=== PATIENT | male | born 1970 | race Caucasian/White ===

== ENCOUNTER 2023-07-30 19:35 | Inpatient (IN) | payer OTHER, SELFPAY ==
[2023-07-30 19:54] VITALS: BMI 30.6
[2023-07-30 20:46] LABS: Hemoglobin 15.3 g/dL (13.0-18.0); Mean Corp Hgb Conc. 36.4 g/dL (33.0-37.0); Mean Corpuscular Hgb 29.8 pg (27.0-31.0); Mean Corpuscular Volume 81.7 fL (80.0-94.0); Mean Platelet Volume 10.4 fL (7.4-10.4); Platelet Count 155 10^3/uL (130-400); Red Blood Cell Count 5.14 10^6/uL (4.70-6.10); White Blood Cell Count 8.9 10^3/uL (4.8-10.8)
[2023-07-30 20:56] LABS: INR 1.01; PT 13.1 Sec (11.4-14.6)
[2023-07-30 20:57] LABS: APTT 30.8 Sec (23.4-35.0)
--- NOTE | 2023-07-30 20:59 | PTCARENOTE ---
received patient from [facility]. AAOx3. independent. denies any pain. oriented to room. at the bedside. updated Tsilin CV PA on arrival and at the bedside. labs and EKG completed.
[2023-07-30 21:11] LABS: ALT (SGPT) 17 U/L (0-50); AST (SGOT) 24 U/L (17-59); Alkaline Phosphatase 72 U/L (38-126); Blood Urea Nitrogen 18 mg/dl (9-20); Calcium 9.2 mg/dl (8.4-10.2); Carbon Dioxide 23 mmol/L (22-30); Chloride 104 mmol/L (98-107); Estimated Creatinine Clearance 100 ml/min; Glucose 105 mg/dl (70-99); Magnesium 2.1 mg/dl (1.6-2.3); Potassium 4.1 mmol/L (3.5-5.1); Sodium 135 mmol/L (135-145); Total Bilirubin 0.9 mg/dl (0.2-1.3); Total Protein 6.8 g/dl (6.3-8.2); eGFR > 60.00
--- NOTE | 2023-07-30 21:59 | HPS.HSE ---
Family Physician
-
Family Physician: PT does not have PCP
Outpatient Supervisor Dental Laboratory: none
Chief Complaint
-
Mitral valve vegetation/mass
History of Present Illness
Mr Aguilera is a very pleasant 52 yo male with no prior cardiac history, current smoker, hx alcohol (quit 2 yrs ago), hx GERD, hernia repair and knee surgery in the past. He has not had regular medical follow-up in awhile and doesn't take any meds at
home. 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
On 07/25 he noted pain in L wrist, which felt like 'bee sting' and looked like 'blood blister.' Pt applied Neosporin and noted that L hand got progressively more swollen and tender. He doesn't recall any injury to L wrist. On Wednesday 07/26 he
noted another red blister, now on R wrist, but recalls getting injured there by the dog collar. It started draining and got more red, which brought him to an Urgent Care on Thursday 07/27. He felt his heart pounding, but otherwise, had no symptoms of
fever, CP, SOB, nausea/vomiting, dizziness. He was found to have elevated BP 180s, abnormal ECG and was sent to ED.
At [facility], he was started on Augmentin for suspected hand cellulitis and states that L wrist looks and feels much better. High sensitivity trops were elevated 95, 109. D-dimer was mildly elevated 0.[address] revealed no PE, no focal
consolidation. He remained afebrile with normal wbc. He denies hx of diabetes, HgA1C was 5.6
Pt underwent Echo revealing nl LV and RV fxn, EF 60-65% and mod-severe MR with 1.4*1.5 cm mass, associated with the posterior mitral valve leaflet, prolapsing into the Left atrium, which likely represents a vegetation, tumor could not be totally
excluded. Normal aortic valve, normal tricuspid valve with trivial to mild TR and no pericardial effusion.
He was switched from Augmentin to Cefepime and Vancomycin in light of mitral valve vegetation. Cath 07/29 with non-obstructive CAD.
CHRIST 07/29 revealed large size (approx 2*1 cm) rectangular shape with multiple small size attached masses likely encasing P2 scallop of the posterior leaflet in the atrial side. Anterior mitral popliteal leaflet is moderately thickened. Mitral
regurgitation appears in moderate range. There is systolic wave blunting in the 2 pulmonary veins. Normal RV systolic function. Normal LV fxn, EF 55-60%. No thrombus in REESE, no pericardial effusion.
Pt is sent to on 07/29 for further work-up. He denies any symptoms, appears comfortable and not on any drips. He was started on ASA, Lipitor, Lopressor 50 bid, Norvasc, Cefepime 1 gm q12, Vanco 1500 mg q12, and Nicotine lozenge.
Medical History
Past Medical History
Past Medical History: Reports GERD (no relief with Prilosec in the past)
Additional Past Medical History:
in 1997 had syncope going to the bathroom after drinking beer, suspected d/t dehydration
Past Surgical History: Reports Other (L inguinal hernia repair and R knee surgery for Lynne-Schlatter dz)
Social History
Tobacco: Smoker (1-1.5 ppd since 20 yo.)
Alcohol: Former (drank 3.5 cases of beer (24 pack each), quit 2 years ago)
Drug: None
Personal: ('s name is Marta. Has 25 yo daughter and 22 yo son)
Living: With Family
Employment: Employed (works in facility maintenance)
Family History
Family History: Unable to Obtain (Father . Has no communication in 13 years with mother and older sister )
Allergies / Home Medications
Allergies reflects when Allergies were last updated in [email or web address].
Home Medications with original date entered in [email or web address]
Allergy/Medication List:
NKDA
Home meds : Motrin prn
Review of Systems
-
History Source: Patient
A 12 point ROS was completed and negative except as noted: Yes
Constitutional: Reports Weight Gain (since April ) and Other (Denies any fever, chills, night sweats)
EENT: Reports No Symptoms
Respiratory: Reports No Symptoms
Cardiac: Reports No Symptoms
Abdomen/GI: Reports No Symptoms
: Reports No Symptoms
Musculoskeletal: Reports Joint Swelling (L hand as in HPI - improved)
Skin: Reports Other (L and R wrist lesions)
Neurological: Reports No Symptoms
Endocrine: Reports No Symptoms
Hematologic/Lymphatic: Reports No Symptoms
Psych: Reports No Symptoms
Physical Exam
Vital Signs
Vital Signs
Temp Resp Pulse Ox
98.0 F 20 96
07/30/23 19:48 07/30/23 19:48 07/30/23 19:48
Physical Exam
General: Well Developed, Well Nourished, No Apparent Distress, Comfortable and Conversant
HEENT: NormoCephalic, Anicteric, Moist mucous membranes and PERRLA
Respiratory: Decreased Breath Sounds (throughout. No rales, no wheeze b/l)
Cardiac: S1/S2, Regular Rhythm, Murmur (2/6 systolic murmur at L midclavicular area) and Other (No carotid bruits b/l. No JVD. No edema b/l. 2+ DP and PT b/l)
GI: Soft, Non Tender, Non Distended and Normal Bowel Sounds
Musculoskeletal: No Edema
Skin: Warm, Dry and Lesions (L and R wrists)
Neuro: Awake, AO x 3, No Motor Deficits and Nonfocal/grossly intact
Psych: Calm and Intact Judgment/Insight
Laboratory Results
-
07/30/23 20:39
07/30/23 20:39
Laboratory Results
PT 13.1 Sec (11.4-14.6) 07/30/23 20:39
INR 1.01 07/30/23 20:39
APTT 30.8 Sec (23.4-35.0) 07/30/23 20:39
Total Bilirubin 0.9 mg/dl (0.2-1.3) 07/30/23 20:39
AST 24 U/L (17-59) 07/30/23 20:39
ALT 17 U/L (0-50) 07/30/23 20:39
Alkaline Phosphatase 72 U/L (38-126) 07/30/23 20:39
Data Reviewed
-
CT Scan: Report Reviewed by me
Medical Tests (Nuc Med, Echo, EKG etc): Image Personally Visualized and interpreted
Lab Data: Labs Reviewed by me
Old Records: Reviewed
Impression/Plan
-
IMPRESSION:
-MV mass/vegetation with moderate MR by CHRIST 07/30/23- on Cefepime and Vanco.
-L hand cellulitis/b/l wrist lesions - improving, s/p Tdap at [facility]
-Chest CT at [facility]: no PE
-HTN/HLD
-elevated HS-trops without ischemia
-Cath 07/30/23: non-obstructive CAD
LM: normal
LAD: prox and mid 10% stenosis
D1: normal
D2: 10% prox stenosis
Circ: prox <10% and mid 10% stenosis
OM1 and OM3 with luminal irreg
OM2 and OM4 normal
RCA: prox 10% and mid with luminal irreg
PDA and RPLs normal
-EF 55-60%
-Current smoker 1-1.5 ppd for 30 yrs
-Hx alcohol, quit 2 years ago
-Hx GERD
-Hx L inguinal hernia repair
-Hx R knee surgery
PLAN:
-continue Abx
-follow blood cx (has been afebrile with nl wbc)
-will review findings (CHRIST, Cath, CT...) with Dr. Raines and initiate preop work-up
-Cardiology follow-up
[2023-07-30] MEDS: LOVENOX 40 MG SC (22:05)
[2023-07-30] MEDS: MAXIPIME 1000 MG IV (22:05)
[2023-07-30] MEDS: STERILE WATER FOR INJECTION 10 ML IV (22:05)
[2023-07-30 22:31] VITALS: BP 127/84
[2023-07-30] MEDS: VANCOCIN 300 ML IV (22:32)
[2023-07-30] MEDS: VANCOCIN 300 MG IV (22:32)
--- NOTE | 2023-07-31 03:28 | DOWNTIME ---
There was a [employer] Downtime on 07/31/2023 from 0100 to 07/31/2023 at 0322. Downtime documentation of patient's care, including medication administrations, has been reconciled in the electronic record per guidelines. Refer to the
patient's paper chart under the miscellaneous tab to see printed paper medication records and downtime forms.
[2023-07-31 05:22] VITALS: BP 132/86
[2023-07-31 05:47] LABS: Hematocrit 42.4 % (39.0-52.0); Mean Corp Hgb Conc. 35.4 g/dL (33.0-37.0); Mean Corpuscular Hgb 29.5 pg (27.0-31.0); Mean Corpuscular Volume 83.5 fL (80.0-94.0); Mean Platelet Volume 10.3 fL (7.4-10.4); Platelet Count 147 10^3/uL (130-400); Red Blood Cell Count 5.08 10^6/uL (4.70-6.10); White Blood Cell Count 7.7 10^3/uL (4.8-10.8)
[2023-07-31 06:02] LABS: Blood Urea Nitrogen 17 mg/dl (9-20); Calcium 9.1 mg/dl (8.4-10.2); Carbon Dioxide 24 mmol/L (22-30); Chloride 110 mmol/L (98-107); Estimated Creatinine Clearance 100 ml/min; Glucose 105 mg/dl (70-99); Potassium 4.3 mmol/L (3.5-5.1); Sodium 136 mmol/L (135-145); eGFR > 60.00
[2023-07-31 08:03] VITALS: BP 148/86
[2023-07-31] MEDS: ASPIR LOW (ENTERIC COATED) 81 MG PO (08:06)
[2023-07-31] MEDS: LOPRESSOR 50 MG PO ×2 (08:06→20:06)
[2023-07-31] MEDS: PROTONIX 40 MG PO (08:06)
[2023-07-31] MEDS: NORVASC 5 MG PO (08:06)
--- NOTE | 2023-07-31 08:49 | CON.CAR ---
Addendum entered and electronically signed by Jose Vaughn MD 07/31/23 09:43:
52 yo male with tobacco abuse transferred from [facility] for evaluation of mitral regurgitation. I reviewed his TTE and CHRIST images. Appears to be at least moderate/severe MR with flail at P1/P2. Patient is being evaluated for surgical repair.
Tele: SR, frequent PVC's.
Cath showed non-obstructive CAD. Cont ASA, statin.
Also new diagnosis HTN. Continue amlodipine and metoprolol.
Original Note:
Consultation
Consultation Request
Date/Time Consultation Requested: 07/30/23 1521
Date/Time Consultation Performed: 07/31/23 0800
Requesting Provider: Irene Whitehead PA-C
Performing Provider: Kierra STEPHENS for Dr. Vaughn
Reason for Consultation: mitral valve disease
Medical History
-
Chief Complaint: mitral valve disease
History of Present Illness:
52 y/o male with GERD, current tobacco use, and previous 'borderline' HTN who has not seen medical provider in over 10 years and is not on any medicines as an OP. On night, he felt something like a sting to his left hand. It developed into
a blister, which he popped. The area became more reddened and his hand became swollen. Then, his dog's collar caught his skin on his wrist and he had a wound there. On Saturday, he went to urgent care, where his BP was high. The provider auscultated
his heart and recommended an EKG, which he was told was abnormal. He was referred to the ED ([facility]). He was treated for cellulitis with abx. Trops were abnormal (HS 95, 109). Echo showed EF 60-65% and mod-severe MR with 1.4*1.5 cm mass, associated
with the posterior mitral valve leaflet, prolapsing into the Left atrium. CHRIST 07/29 revealed large size (approx 2*1 cm) rectangular shape with multiple small size attached masses likely encasing P2 scallop of the posterior leaflet in the atrial side.
Anterior mitral popliteal leaflet is moderately thickened. Mitral regurgitation appears in moderate range. There is systolic wave blunting in the [address] Vaughn reviewed imaging here and appears as flail leaflet and endocarditis not
suspected. Cath did not reveal obstructive CAD. He is referred here for surgical management. He denies any CP or SOB. He does get palpitations. PVC's noted on monitor. He looks well overall and is in no distress at the time of my assessment. His
is present in the room with him.
Past Medical History
Past Medical History: GERD and HTN
Social History
Tobacco: Smoker (1 PPD)
Alcohol: Former (quit 2 years ago)
Employment: Employed
Family History
Family History: Other (dad had heart valve disease - details unclear)
Allergies / Home Medications
Allergy/AdvReac Type Severity Reaction Status Date / Time
No Known Allergies Allergy Unverified 07/30/23 21:05
Review of Systems
-
History Source: Patient and Other (and chart)
All other systems: Negative unless noted
Cardiac: Palpitations
Skin: Other (wounds to hands)
Physical Exam
Vital Signs
Temp Pulse Resp BP Pulse Ox
99.7 F 103 16 132/86 96
07/31/23 08:03 07/31/23 08:03 07/31/23 08:03 07/31/23 05:22 07/31/23 08:03
Lab Results
07/31/23 05:24
07/31/23 05:24
Physical Exam
General: Well Developed, Well Nourished and No Apparent Distress
HEENT: Normocephalic and Anicteric
Respiratory: Clear and Non Labored Respirations
Cardiac: Murmur (III/ systolic murmur)
Musculoskeletal: No Edema
Skin: Warm, Dry and Other (left hand with small wound as noted)
Neuro: AO x 3
Psych: Calm
Impression / Plan
-
Mitral valve disease:
-discussed with Dr. Vaughn, who reviewed images- appears to have flail leaflet
-management per CT surgery
Cellulitis:
-s/p antibiotics
-ID consulted
HTN:
-continue metoprolol and amlodipine and monitor
PVC's:
-continue BB, follow telemetry
-EF normal
Current smoker:
-recommended cessation
Data Reviewed
-
EKG: Tracing Personally Visualized and interpreted (NSR 76 BPM)
Ultrasound: Other (CHRIST 07/29 revealed large size (approx 2*1 cm) rectangular shape with multiple small size attached masses likely encasing P2 scallop of the posterior leaflet in the atrial side. Anterior mitral popliteal leaflet is moderately
thickened. Mitral regurgitation appears in moderate range. There is systolic)
Medical Tests (Nuc Med, Echo etc): Report Reviewed by me (Cath report from 07/30/23: non-obstructive CAD- LM: normal- LAD: prox and mid 10% stenosis D1: normal D2: 10% prox stenosis Circ: prox <10% and mid 10% stenosis OM1 and OM3 with luminal irreg
OM2 and OM4 normal RCA: prox 10% and mid with luminal irreg PDA and RPLs normal) and Other (Echo [facility]: EF 60-65% and mod-severe MR with 1.4*1.5 cm mass, associated with the posterior mitral valve leaflet, prolapsing into the Left atrium)
Labs: Labs Reviewed by me
[2023-07-31 09:00] LABS: Glycohemoglobin (HgbA1c) 5.7 % (4.0-5.6)
[2023-07-31 11:19] VITALS: BP 125/88
[2023-07-31 13:07] LABS: Erythrocyte Sed Rate 19 mm/hour (0-20)
--- NOTE | 2023-07-31 14:16 | CM ---
spoke to pt and in room, he is prev indep, lives with his in a 2 story home with 12 steps to enter. he denies any dc planning needs or dme's.
plan is for MVR this admission. date not sched yet, cm to follow.
--- NOTE | 2023-07-31 15:06 | W.PN.UPDATE ---
Update Note
Progress Note Update
I met with Mr. Aguilera and his spouse today at the bedside. Likely a flailed segment of P1/2. Will monitor him for 24 hours and if PVCs remain stable and no runs of VT, then possibly will discharge with surgery on 08/11 with me. I reviewed his imaging
both TTE and CHRIST. He has an obvious systolic murmur consistent with MR. The MR is better represented on the CHRIST. He complains of more palpitations and feeling 'different' over the last month. Otherwise, no heart failure but he also doesn't follow
with a physician. Will need dental clearance but will tentatively plan for heart port mitral repair with me in within a week if he is able to be discharged home.
Thank you for involving me in the care of this patient. Please feel free to contact me with any questions or concerns.
Davide Lopez MD, MS
Cardiothoracic Surgeon
[facility]
This dictation was created using the [employer] dictation system. Please excuse any grammatical, typographical, or 'sound alike' errors.
--- NOTE | 2023-07-31 15:38 | CON.ID ---
Consultation
-
Date/Time Consultation Requested: 07/30/2023 1521
Date/Time Consultation Performed: 07/31/2023 1130
Requesting Provider: ANGELO Valles
Performing Provider: Dr. Cade
Reason for Consultation: Possible endocarditis
Chief Complaint / Past History
History of Present Illness
Dylan Aguilera is a 52-year-old man being evaluated in regards to possible mitral valve endocarditis. History is obtained from chart review, along with patient interview, and history obtained from the patient's who is at the bedside.
The patient reports that he was in his usual state of health until late last week when he developed some left hand discomfort after he may have been stung by an insect. The next day, he developed what appeared to be a bruised area on his left hand
on the dorsal region. Over the next day the hand became mildly swollen and he ultimately was seen at an urgent care center for further evaluation. There, his hand was attended to and he was prescribed Augmentin. During the evaluation, the
provider auscultated a heart murmur and they advised further evaluation at an ER. The patient went home and then went to [facility] emergency room where an echo was performed and found an abnormality on the mitral valve. He has been
transferred to [facility] for further care and possible surgery.
The patient reports that at the urgent care he had received a prescription for Augmentin, of which he took 2 doses (Saturday p.m. and Saturday a.m.) While he was at [facility] he did have blood cultures obtained (although after 2 doses of
Augmentin). He denies any history of recent fevers or chills. He denies any history of malaise.
Past History
Past Medical History: None
Additional Past Surgical History:
Hernia repair
Right knee surgery
Allergy History:
No Known Allergies Allergy (Unverified 07/30/23 21:05)
Medications Reviewed: Yes
Current Antibiotics:
Recent Augmentin.
Vancomycin and cefepime at [facility] and here.
Social History
Tobacco: Smoker (1 and half packs per day x 30 years)
Alcohol: None
Drug: None
Personal:
Living: With Family
Employment: Employed
Family History
Family History: Not Pertinent
Review of Systems
Vital Signs
Temp Pulse Resp BP Pulse Ox
98 F 70 16 148/86 95
07/31/23 11:19 07/31/23 11:19 07/31/23 11:19 07/31/23 08:03 07/31/23 11:19
Physical Exam
Physical Exam
Constitutional: No Acute Distress, Well Developed, Comfortable and Non-toxic
Head: Normocephalic
Eyes: Pupils Equal, Pupils Round and No Conjunctival Hemorrhage
Oral: No Thrush and No Ulcers
Cardiovascular: S1/S2 and Murmur; Negative S3/S4
Pulmonary: Clear and Non Labored
Gastrointestinal: Soft, Non Tender, Non Distended and Normal Bowel Sounds
Extremities: Negative Cyanosis, Erythema, Splinter Hemorrhage, Venous Insufficiency or Janeway Lesions
Skin: Warm and Dry; Negative Rash or Jaundice
Neurological: Awake and Alert
Psychological: Calm
Lab / Diagnostic Study Results
07/31/23 05:24
07/31/23 05:24
ESR 19 mm/hour (0-20) 07/31/23 12:46
PT 13.1 Sec (11.4-14.6) 07/30/23 20:39
INR 1.01 07/30/23 20:39
C-Reactive Protein 9.50 mg/L (0.0-10.00) 07/31/23 12:46
Microbiology Results
Micro:
07/31/23 06:01 Blood Culture - Pending
Blood/Venous
07/31/23 05:24 Blood Culture - Pending
Blood/Venous
07/31/23 05:24 MRSA Screen - Pending
Nose
Imaging:
07/31/2023 CXR (2 view): No evidence of active cardiopulmonary disease.
07/30/2023 ECHO (CHRIST): Official report not immediately available, but records indicate a large rectangular shape with multiple small sized attached masses likely encasing P2 with scalloping of the posterior leaflet on the atrial side.
Assessment / Plan
Abnormal mitral valve with concern for endocarditis
Recommendations:
Case discussed with CT Surgery AIR POLLUTION ANALYST. Antibiotics discontinued.
ESR and CRP ordered earlier today and are essentially normal, making the likelihood of endocarditis somewhat low. Additionally, review of records from CT Surgery indicate that this is likely a flail valve rather than a vegitation.
Blood cultures have been obtained.
Would monitor off of antimicrobial therapy for the present time. Records review indicate that the patient will likely go for valve surgery next week. Given that the patient is not on antibiotics, I would have no objection from a Infectious
Diseases standpoint to discharge.
If blood cultures were to turn positive, antibiotics can be reinstituted.
Care Review
Plan reviewed with: Physician (CT Surgery)
--- NOTE | 2023-07-31 15:58 | W.PN.UPDATE ---
Update Note
Progress Note Update
Procedure Type:�Isolated MVr
PERIOPERATIVE OUTCOME ESTIMATE %
Operative Mortality 0.285%
Morbidity & Mortality 3.75%
Stroke 0.526%
Renal Failure 0.514%
Reoperation 1.72%
Prolonged Ventilation 1.93%
Deep Sternal Wound Infection 0.047%
Long Hospital Stay (>14 days) 1.05%
Short Hospital Stay (<6 days)* 75.7%
Clinical Summary
Planned Surgery: Isolated MVr, Elective, First cardiovascular surgery
Demographics: 52 year old, White, male, 96.8kg, 178cm, BMI: 30.6 kg/m�
Lab Values: Creatinine: 1 mg/dL, Hematocrit: 42.4%, WBC Count: 7.7 10�/�L, Platelet Count: 802933 cells/�L
Substance Abuse: Current smoker
Cardiac Status: Ejection Fraction = 55%
Coronary Artery Disease: No coronary symptoms
Valve Disease: Severe MR, Mild TR
[2023-07-31] MEDS: LIPITOR 40 MG PO (17:14)
[2023-07-31] MEDS: LOVENOX 40 MG SC (17:14)
[2023-07-31 18:51] VITALS: BP 139/93
--- NOTE | 2023-07-31 18:59 | PTCARENOTE ---
Pt with no c/o today. Ambulating in the hallway ad irene. Pt sent for all ordered pre op testing.
--- NOTE | 2023-07-31 20:20 | PTCARENOTE ---
Assumed care of patient at 1900. Patient found OOB in chair at time of assessment. Patient is AOx4, follows commands appropriately, moves all extremities. Patient ambulates independently. Lung sounds are clear and equal bilaterally, saO2 95% on RA.
Heart sounds have a regular rate and rhythm, audible murmur on auscultation, no edema is noted, and normal palpable pulses present. Patient has soft nontender obese with active BS in all four quadrant. Patient has sores on L and R hand according to
patient 2/2 tick bites. There is some local erythema and scabbing noted. Wounds are PICKER AND PACKER. Patient has L arm PIV available for intermittent infusion. VSS. Patient has no complaints at this time.
[2023-07-31 22:37] VITALS: BP 124/81
[2023-07-31 22:51] VITALS: BP 124/81
[2023-08-01] VITALS (7 sets, daily range): BP systolic 124–140; BP diastolic 76–88
--- NOTE | 2023-08-01 06:15 | W.PN.CT ---
Today's Communication / Plan
-
Plan:
-tele: nsr with frequent PACs, PVCs, occasional couplet or triplet. No runs of VT
-no issues overnight, ambulates
-continue Lopressor 50 bid, ASA, Lipitor, Norvasc
-blood cx pending, remains afebrile, off Abx
-appreciate everyone's input
-plans for MV repair on 08/[address] Lopez
Assessment / Plan
-
Impression:
-Moderate MR, suspected a flailed segment of P1/2
-Normal ESR and CRP, making the likelihood of endocarditis somewhat low- Abx stopped 07/30. Blood cx pending- appreciate ID input
-L hand cellulitis/b/l wrist lesions - improving, s/p Tdap at [facility]
-Chest CT at [facility]: no PE
-HTN/HLD
-Frequent PVCs - continue BB
-elevated HS-trops without ischemia
-Cath 07/30/23: non-obstructive CAD
-EF 55-60%
-Current smoker 1-1.5 ppd for 30 yrs
-Hx alcohol, quit 2 years ago
-Hx GERD
-Hx L inguinal hernia repair
-Hx R knee surgery
-frequent PACs, PVCs, occasional couplet or triplet - feels palpitations, denies any dizziness, CP or SOB
Chest/abdomen/pelvis CTA 07/30:
Mild calcific atherosclerotic changes of the thoracic aortic arch and descending thoracic aorta.
Thoracic and abdominal aorta within the limits of normal in caliber and homogeneous in appearance.
Limited by cardiac motion, small amorphous area of decreased attenuation associated with the posterior mitral valve leaflet possibly corresponding to the small lesion/mass seen on cardiac echo.
Limited on this study, suggestion of single small bilateral low-attenuation renal lesions too small to characterize, possibly cysts.
Sigmoid diverticulosis.
Cannot exclude small fat only containing right inguinal hernia.
Discussed patient care with: Nursing and Care Team
Subjective
-
Date of Service: August 01, 2023
Objective Data
-
PT 13.1 Sec (11.4-14.6) 07/30/23 20:39
INR 1.01 07/30/23 20:39
APTT 30.8 Sec (23.4-35.0) 07/30/23 20:39
Vital Signs
Vital Signs
Temp Pulse Resp BP Pulse Ox
98.0 F 54 18 129/82 96
08/01/23 03:00 08/01/23 04:00 08/01/23 03:00 08/01/23 03:14 08/01/23 03:00
CT Intake/Output/Weight
07/31/23 07/31/23 08/01/23
06:59 18:59 06:59
Intake Total 1180 / 1180
Balance 1180 / 1180
SaO2: 96
Physical Exam
-
General: Well Developed, Well Nourished, No Apparent Distress, Comfortable and Conversant
HEENT: Normocephalic, Anicteric, Moist mucous membranes and PERRLA
Respiratory: Decreased Breath Sounds (throughout. No rales, no wheeze b/l)
Cardiac: S1/S2, Regular Rhythm, Murmur (2/6 systolic murmur at L midclavicular area) and Other (No carotid bruits b/l. No JVD. No edema b/l. 2+ DP and PT b/l)
GI: Soft, Non Tender, Non Distended and Normal Bowel Sounds
Musculoskeletal: No Edema
Skin: Warm, Dry and Lesions (L and R wrists)
Neuro: Awake, AO x 3, No Motor Deficits and Nonfocal/grossly intact
Psych: Calm and Intact Judgment/Insight
Data Reviewed
-
Lab Results: Results Reviewed
Medications: Active Meds Reviewed
Chest X-Ray: Report Reviewed and Image Reviewed
ECG: Report Reviewed and Image Reviewed
[2023-08-01 06:57] LABS: Hematocrit 40.8 % (39.0-52.0); Hemoglobin 14.7 g/dL (13.0-18.0); Mean Corpuscular Hgb 29.6 pg (27.0-31.0); Mean Corpuscular Volume 82.1 fL (80.0-94.0); Mean Platelet Volume 10.5 fL (7.4-10.4); Platelet Count 151 10^3/uL (130-400); Red Blood Cell Count 4.97 10^6/uL (4.70-6.10); Red Cell Dist. Width 12.8 % (11.5-14.5); White Blood Cell Count 6.1 10^3/uL (4.8-10.8)
[2023-08-01 07:10] LABS: Blood Urea Nitrogen 18 mg/dl (9-20); Carbon Dioxide 26 mmol/L (22-30); Chloride 105 mmol/L (98-107); Estimated Creatinine Clearance 100 ml/min; Glucose 107 mg/dl (70-99); Magnesium 2.1 mg/dl (1.6-2.3); Potassium 4.2 mmol/L (3.5-5.1); Sodium 136 mmol/L (135-145); eGFR > 60.00
--- NOTE | 2023-08-01 08:55 | W.PN.CD ---
Today's Communication / Plan
-
continue metoprolol
surgical evaluation
Impression / Plan
-
Mitral regurgitation, severe
-mechanism appears to be flail leaflet, at P1/P2
-no evidence of endocarditis
-agree with surgical evaluation
Cellulitis:
-s/p antibiotics with ID input
HTN:
-continue metoprolol and amlodipine
PVC's: improved with beta maria e
-echo with normal LVEF
-continue metoprolol
Non-obstructive CAD
-ASA, statin
Current smoker:
-recommended cessation
Physical Exam
Vital Signs/Labs
Vital Signs
Temp Pulse Resp BP Pulse Ox
98.1 F 54 20 129/82 97
08/01/23 08:02 08/01/23 04:00 08/01/23 08:02 08/01/23 03:14 08/01/23 08:02
07/31/23 08/01/23 08/02/23
06:59 06:59 06:59
Actual Weight 96.8 kg
08/01/23 06:39
08/01/23 06:41
PT 13.1 Sec (11.4-14.6) 07/30/23 20:39
INR 1.01 07/30/23 20:39
APTT 30.8 Sec (23.4-35.0) 07/30/23 20:39
Magnesium 2.1 mg/dl (1.6-2.3) 08/01/23 06:41
Physical Exam
Constitutional: No acute distress and Comfortable
EENT: Moist mucous membranes
Cardiovascular: Rhythm & rate is regular, Pedal edema is absent, JVD pressure is normal and Systolic murmur present
Respiratory: Respiratory effort normal, Lungs clear to auscul. and Wheeze Absent
GI: Soft, Distention absent and Flat
Neuro/Psych: AO x 3
Data Reviewed
-
Date of Service: August 01, 2023
EKG: Other (Tele: occasional PVC's, one triplet)
Labs: Labs Reviewed by me
[2023-08-01] MEDS: ASPIR LOW (ENTERIC COATED) 81 MG PO (09:10)
[2023-08-01] MEDS: LOPRESSOR 50 MG PO ×2 (09:10→19:48)
[2023-08-01] MEDS: PROTONIX 40 MG PO (09:10)
[2023-08-01] MEDS: SENOKOT-S 1 TABLET PO (09:10)
[2023-08-01] MEDS: NORVASC 5 MG PO (09:10)
--- NOTE | 2023-08-01 11:07 | W.PN.ID1 ---
Date of Service
Date of Service: August 01, 2023
Today's Communication
Observe off antibiotics
Assessment / Plan
Abnormal mitral valve with concern for endocarditis
Recommendations:
ESR and CRP essentially normal, making the likelihood of endocarditis somewhat low. Additionally, review of records from CT Surgery indicate that this is likely a flail valve rather than a vegetation.
Blood cultures have been obtained; no growth thus far.
Would continue to monitor off of antimicrobial therapy for the present time. Records review indicate that the patient will likely go for valve surgery next week.
If blood cultures were to turn positive, antibiotics can be reinstituted.
����������������������������������������������������������
Chief Complaint
-: Other (Abnormal mitral valve)
Subjective / Review of Systems
Review of Systems: No Fever and No Chills
Vital Signs / Physical Exam
Vital Signs
Vital Signs
Temp Pulse Resp BP Pulse Ox
98.1 F 71 20 130/87 96
08/01/23 08:02 08/01/23 10:45 08/01/23 08:02 08/01/23 09:10 08/01/23 08:30
Physical Exam
Constitutional: No Acute Distress, Comfortable and Non-toxic
Cardiovascular: Regular Rate
Pulmonary: Non Labored
Gastrointestinal: Non Distended
Neurological: Awake and Alert
Psychological: Calm
Objective Data
Lab Data
Lab Results
08/01/23 06:39
08/01/23 06:41
ESR 19 mm/hour (0-20) 07/31/23 12:46
PT 13.1 Sec (11.4-14.6) 07/30/23 20:39
INR 1.01 07/30/23 20:39
APTT 30.8 Sec (23.4-35.0) 07/30/23 20:39
Estimated Creat Clear 100 ml/min 08/01/23 06:41
Total Bilirubin 0.9 mg/dl (0.2-1.3) 07/30/23 20:39
AST 24 U/L (17-59) 07/30/23 20:39
ALT 17 U/L (0-50) 07/30/23 20:39
Alkaline Phosphatase 72 U/L (38-126) 07/30/23 20:39
C-Reactive Protein 9.50 mg/L (0.0-10.00) 07/31/23 12:46
Most recent labs reviewed.
Micro Results:
07/31/23 05:24 MRSA Screen - Final
Nose No Methicillin Resistant Staphylococcus aureus isolated.
07/31/23 06:01 Blood Culture - Preliminary
Blood/Venous No Growth in 24 hours- Final report to follow
07/31/23 05:24 Blood Culture - Preliminary
Blood/Venous No Growth in 24 hours- Final report to follow
08/01/23 03:37 Blood Culture - Pending
Blood/Venous
Imaging:
07/31/2023 CXR (2 view): No evidence of active cardiopulmonary disease.
07/30/2023 ECHO ([facility]): Official report not immediately available, but records indicate a large rectangular shape with multiple small sized attached masses likely encasing P2 with scalloping of the posterior leaflet on the atrial side.
[2023-08-01] MEDS: LOVENOX 40 MG SC (17:39)
[2023-08-01] MEDS: LIPITOR 40 MG PO (17:39)
--- NOTE | 2023-08-01 22:58 | PTCARENOTE ---
assumed care of patient at the change of shift. independent in the room. ambulating in the hallway. denies any cp/sob. SR on tele with PVCs 60s. bp stable. patient showered per order. no issues. educated patient to inform RN with any changes. makes
needs known.
--- NOTE | 2023-08-02 05:27 | W.PN.CT ---
Today's Communication / Plan
-
-no issues overnight
-pt is asking to minimize blood draws- will check labs on Saturday
-plan for Mv repair +/- REESE E due to frequent PAC/PVCs with Dr. Lopez on Saturday.
Assessment / Plan
-
Impression:
-Moderate MR, suspected a flailed segment of P1/2
-Normal ESR and CRP, making the likelihood of endocarditis somewhat low- Abx stopped 07/30. Blood cx pending- appreciate ID input
-L hand cellulitis/b/l wrist lesions - improving, s/p Tdap at [facility]
-Chest CT at [facility]: no PE
-HTN/HLD
-Frequent PVCs - continue BB
-elevated HS-trops without ischemia
-Cath 07/30/23: non-obstructive CAD
-EF 55-60%
-Current smoker 1-1.5 ppd for 30 yrs
-Hx alcohol, quit 2 years ago
-Hx GERD
-Hx L inguinal hernia repair
-Hx R knee surgery
-frequent PACs, PVCs, occasional couplet or triplet - feels palpitations, denies any dizziness, CP or SOB
Chest/abdomen/pelvis CTA 07/30:
Mild calcific atherosclerotic changes of the thoracic aortic arch and descending thoracic aorta.
Thoracic and abdominal aorta within the limits of normal in caliber and homogeneous in appearance.
Limited by cardiac motion, small amorphous area of decreased attenuation associated with the posterior mitral valve leaflet possibly corresponding to the small lesion/mass seen on cardiac echo.
Limited on this study, suggestion of single small bilateral low-attenuation renal lesions too small to characterize, possibly cysts.
Sigmoid diverticulosis.
Cannot exclude small fat only containing right inguinal hernia.
Discussed patient care with: Nursing and Care Team
Subjective
-
Date of Service: August 02, 2023
Objective Data
-
Lab Results
08/01/23 06:39
03/28/24 06:41
PT 13.1 Sec (11.4-14.6) 07/30/23 20:39
INR 1.01 07/30/23 20:39
APTT 30.8 Sec (23.4-35.0) 07/30/23 20:39
Vital Signs
Vital Signs
Temp Pulse Resp BP Pulse Ox
98.2 F 67 20 133/80 97
08/01/23 23:29 08/01/23 22:45 08/01/23 23:29 08/01/23 22:11 08/01/23 23:29
CT Intake/Output/Weight
08/01/23 08/01/23 08/02/23
06:59 18:59 06:59
Intake Total 450 / 450
Balance 450 / 450
SaO2: 97
Physical Exam
-
General: AOx3
Cardiovascular: Regular rate & rhythm and Murmur (2/6 systolic @ L mid-clav line)
Respiratory: Clear
Extremities: No Edema
Data Reviewed
-
Lab Results: Results Reviewed
Medications: Active Meds Reviewed
Chest X-Ray: Report Reviewed
ECG: Report Reviewed and Image Reviewed
[2023-08-02 05:44] VITALS: BP 151/93
[2023-08-02 06:57] VITALS: BP 128/88
[2023-08-02] MEDS: ASPIR LOW (ENTERIC COATED) 81 MG PO (08:52)
[2023-08-02] MEDS: LOPRESSOR 50 MG PO ×2 (08:52→19:44)
[2023-08-02] MEDS: PROTONIX 40 MG PO (08:52)
[2023-08-02] MEDS: SENOKOT-S 1 TABLET PO (08:52)
[2023-08-02] MEDS: NORVASC 5 MG PO (08:52)
--- NOTE | 2023-08-02 09:29 | W.PN.CD ---
Today's Communication / Plan
-
MV repair Saturday
please call us with questions over the weekend
we will see again post op on Saturday
Impression / Plan
-
Mitral regurgitation, severe
-mechanism appears to be flail leaflet, at P1/P2
-no evidence of endocarditis
-agree with surgical evaluation: plan for Saturday
Cellulitis:
-s/p antibiotics with ID input
HTN:
-continue metoprolol and amlodipine
PVC's: improved with beta maria e
-echo with normal LVEF
-continue metoprolol
Non-obstructive CAD
-ASA, statin
Current smoker:
-recommended cessation
Physical Exam
Vital Signs/Labs
Vital Signs
Temp Pulse Resp BP Pulse Ox
97.7 F 76 18 128/88 97
08/02/23 07:00 08/02/23 08:52 08/02/23 07:00 08/02/23 08:52 08/02/23 07:00
08/01/23 06:39
08/01/23 06:41
PT 13.1 Sec (11.4-14.6) 07/30/23 20:39
INR 1.01 07/30/23 20:39
APTT 30.8 Sec (23.4-35.0) 07/30/23 20:39
Magnesium 2.1 mg/dl (1.6-2.3) 08/01/23 06:41
Physical Exam
Constitutional: No acute distress and Comfortable
EENT: Moist mucous membranes
Cardiovascular: Rhythm & rate is regular, Pedal edema is absent, JVD pressure is normal and Systolic murmur present
Respiratory: Respiratory effort normal, Lungs clear to auscul. and Wheeze Absent
GI: Soft, Distention absent and Flat
Neuro/Psych: AO x 3
Data Reviewed
-
Date of Service: August 02, 2023
EKG: Other (Tele: NSR 70s, occasional PVC's)
[2023-08-02 11:32] VITALS: BP 121/81
--- NOTE | 2023-08-02 15:00 | CM ---
spoke to pt ion room, we discussed preop MVR teaching including driving and lifting restrictions. he is prev indep, lives with his in a 2 story home with 12 steps to enter. he has the CT surgery book. he is agreeable to a f/u with the CT
Transitional care nurses after dc. cm role explained all questions answered. plan is for MVR saturday.
--- NOTE | 2023-08-02 15:37 | PTCARENOTE ---
assumed care of patient this am. monitor shows NSR with PVC's, vss. patient knows that he is waiting until Saturday for surgery, patient has no questions at this time. patient was just educated on pre op by case management. family at bedside.
[2023-08-02 15:43] VITALS: BP 121/81
[2023-08-02] MEDS: LIPITOR 40 MG PO (18:11)
[2023-08-02] MEDS: LOVENOX 40 MG SC (18:11)
[2023-08-02 18:32] VITALS: BP 147/89
--- NOTE | 2023-08-02 20:39 | PTCARENOTE ---
Pt received at start of shift, HR 60s-80s SR w/ PVCs. Pt resting in bed. Spoke w/ pt about plan of care, pt states no questions at this time but they are very anxious about possible complications during/after procedure. Pt states he has only been
sleeping 'about 4 hours' a night, pt refusing any sleep aids or anti-anxiety medications at this time. Pt also states he feels 'much better' since getting blood pressure a little more under control, reinforced purpose of Amlodipine and Metoprolol.
Pt denies any CP, lightheadedness/dizziness, or SOB at this time. Informed to notify RN if any changes, call pavon within reach.
[2023-08-02 22:44] VITALS: BP 114/72
[2023-08-03 04:47] VITALS: BP 133/84
--- NOTE | 2023-08-03 04:50 | W.PN.CT ---
Today's Communication / Plan
-
-No major issues overnight. Hemodynamically and neurologically intact
-Cont. current meds (ASA, Lopressor, Lipitor, Norvasc; no longer on antibiotics)
-Pt is asking to minimize blood draws- will check labs on Saturday
-Ongoing preop evaluation (will need dental clearance)
-For for Mv repair +/- REESE clip due to frequent PAC/PVCs with Dr. Lopez on Saturday
Assessment / Plan
-
Impression:
-Moderate MR, suspected a flailed segment of P1/2
-Normal ESR and CRP, making the likelihood of endocarditis somewhat low- Abx stopped 07/30. Blood cx pending- appreciate ID input
-L hand cellulitis/b/l wrist lesions - improving, s/p Tdap at [facility]
-Chest CT at [facility]: no PE
-HTN/HLD
-Frequent PVCs - continue BB
-elevated HS-trops without ischemia
-Cath 07/30/23: non-obstructive CAD
-EF 55-60%
-Current smoker 1-1.5 ppd for 30 yrs
-Hx alcohol, quit 2 years ago
-Hx GERD
-Hx L inguinal hernia repair
-Hx R knee surgery
-frequent PACs, PVCs, occasional couplet or triplet - feels palpitations, denies any dizziness, CP or SOB
Chest/abdomen/pelvis CTA 07/30:
Mild calcific atherosclerotic changes of the thoracic aortic arch and descending thoracic aorta.
Thoracic and abdominal aorta within the limits of normal in caliber and homogeneous in appearance.
Limited by cardiac motion, small amorphous area of decreased attenuation associated with the posterior mitral valve leaflet possibly corresponding to the small lesion/mass seen on cardiac echo.
Limited on this study, suggestion of single small bilateral low-attenuation renal lesions too small to characterize, possibly cysts.
Sigmoid diverticulosis.
Cannot exclude small fat only containing right inguinal hernia.
Discussed patient care with: Cardiology, Nursing, Pharmacy and Care Team
Subjective
-
Date of Service: August 03, 2023
No issues overnight, denies CP/SOB
Objective Data
-
Lab Results
08/01/23 06:39
08/01/23 06:41
PT 13.1 Sec (11.4-14.6) 07/30/23 20:39
INR 1.01 07/30/23 20:39
APTT 30.8 Sec (23.4-35.0) 07/30/23 20:39
Vital Signs
Vital Signs
Temp Pulse Resp BP Pulse Ox
97.6 F 75 18 133/84 99
08/03/23 04:47 08/03/23 04:47 08/03/23 04:47 08/03/23 04:47 08/03/23 04:47
CT Intake/Output/Weight
08/02/23 08/02/23 08/03/23
06:59 18:59 06:59
Intake Total 450 / 450 720 / 720
Balance 450 / 450 720 / 720
SaO2: 99
Physical Exam
-
General: Awake, Oriented and AOx3
Cardiovascular: Regular rate & rhythm and Murmur (3/6 holosystolic)
Respiratory: Clear
Extremities: Other (+trace edema)
Data Reviewed
-
Lab Results: Results Reviewed
Medications: Active Meds Reviewed
Chest X-Ray: Report Reviewed and Image Reviewed
ECG: Report Reviewed and Image Reviewed
[2023-08-03 07:46] VITALS: BP 129/83
[2023-08-03] MEDS: ASPIR LOW (ENTERIC COATED) 81 MG PO (08:20)
[2023-08-03] MEDS: PROTONIX 40 MG PO (08:20)
[2023-08-03] MEDS: LOPRESSOR 50 MG PO ×2 (08:20→19:16)
[2023-08-03] MEDS: NORVASC 5 MG PO (08:21)
[2023-08-03] MEDS: SENOKOT-S 1 TABLET PO (08:21)
--- NOTE | 2023-08-03 09:15 | PTCARENOTE ---
Received pt for 7A-7p shift. Pt AAOx3, without complaints. SR on secured entrance monitor, VSS. Patient ambulatory in room and shelby without issues. Medications administered as ordered. Pt denies pain at this time. Will continue to monitor.
[2023-08-03 10:33] VITALS: BP 111/74
[2023-08-03 13:49] VITALS: BP 136/80
[2023-08-03] MEDS: LIPITOR 40 MG PO (17:01)
[2023-08-03] MEDS: LOVENOX 40 MG SC (17:01)
[2023-08-03 19:15] VITALS: BP 139/85
--- NOTE | 2023-08-03 21:12 | PTCARENOTE ---
Pt received at start of shift, HR SR w/ PVCs 70s-90s. Pt OOB ambulating in shelby. Pt states he feels great, just waiting to get procedure over with. Pt denies any pain, lightheadedness, or dizziness at this time. Informed to notify RN if any changes,
call pavon within reach.
[2023-08-03 22:07] VITALS: BP 133/83
[2023-08-04 04:38] VITALS: BP 131/88
[2023-08-04 04:58] LABS: % Basophils 0.8 % (0-2); % Immature Granulocytes 0.5 % (0-0.5); % Lymphocytes 41.3 % (20.5-51.1); % Neutrophils 46.4 % (42.2-75.2); Absolute Basophils 0.1 10^3/uL (0-0.2); Absolute Eosinophils 0.2 10^3/uL (0-0.7); Absolute Lymphocytes 2.6 10^3/uL (1.2-3.4); Absolute Monocytes 0.5 10^3/uL (0.1-0.6); Hematocrit 38.5 % (39.0-52.0); Hemoglobin 13.8 g/dL (13.0-18.0); Mean Corp Hgb Conc. 35.8 g/dL (33.0-37.0); Mean Corpuscular Hgb 29.2 pg (27.0-31.0); Mean Corpuscular Volume 81.6 fL (80.0-94.0); Mean Platelet Volume 10.7 fL (7.4-10.4); Nucleated Red Blood Cells % 0 % (-); Platelet Count 149 10^3/uL (130-400); Red Blood Cell Count 4.72 10^6/uL (4.70-6.10); Red Cell Dist. Width 12.7 % (11.5-14.5); White Blood Cell Count 6.4 10^3/uL (4.8-10.8)
[2023-08-04 05:07] LABS: INR 0.99; PT 12.9 Sec (11.4-14.6)
[2023-08-04 05:08] LABS: APTT 32.7 Sec (23.4-35.0)
[2023-08-04 05:25] LABS: ALT (SGPT) 26 U/L (0-50); AST (SGOT) 28 U/L (17-59); Albumin 3.5 g/dl (3.5-5.0); Alkaline Phosphatase 63 U/L (38-126); Blood Urea Nitrogen 16 mg/dl (9-20); Calcium 8.7 mg/dl (8.4-10.2); Carbon Dioxide 27 mmol/L (22-30); Chloride 105 mmol/L (98-107); Estimated Creatinine Clearance 111 ml/min; Glucose 102 mg/dl (70-99); Potassium 4.1 mmol/L (3.5-5.1); Sodium 136 mmol/L (135-145); Total Bilirubin 0.8 mg/dl (0.2-1.3); Total Protein 6.1 g/dl (6.3-8.2); eGFR > 60.00
--- NOTE | 2023-08-04 05:26 | W.PN.CT ---
Today's Communication / Plan
-
-No major issues overnight. Hemodynamically and neurologically intact
-Cont. current meds (ASA, Lopressor, Lipitor, Norvasc; no longer on antibiotics)
-Ongoing preop evaluation (will need dental clearance)
-For for Mv repair +/- REESE clip due to frequent PAC/PVCs with Dr. Lopez on Saturday
Assessment / Plan
-
Impression:
-Moderate MR, suspected a flailed segment of P1/2
-Normal ESR and CRP, making the likelihood of endocarditis somewhat low- Abx stopped 07/30. Blood cultures are unrevealing
-L hand cellulitis/b/l wrist lesions - improving, s/p Tdap at [facility]
-Chest CT at [facility]: no PE
-HTN/HLD
-Frequent PVCs - continue BB
-elevated HS-trops without ischemia
-Cath 07/30/23: non-obstructive CAD
-EF 55-60%
-Current smoker 1-1.5 ppd for 30 yrs
-Hx alcohol, quit 2 years ago
-Hx GERD
-Hx L inguinal hernia repair
-Hx R knee surgery
-frequent PACs, PVCs, occasional couplet or triplet - feels palpitations, denies any dizziness, CP or SOB
Chest/abdomen/pelvis CTA 07/30:
Mild calcific atherosclerotic changes of the thoracic aortic arch and descending thoracic aorta.
Thoracic and abdominal aorta within the limits of normal in caliber and homogeneous in appearance.
Limited by cardiac motion, small amorphous area of decreased attenuation associated with the posterior mitral valve leaflet possibly corresponding to the small lesion/mass seen on cardiac echo.
Limited on this study, suggestion of single small bilateral low-attenuation renal lesions too small to characterize, possibly cysts.
Sigmoid diverticulosis.
Cannot exclude small fat only containing right inguinal hernia.
Discussed patient care with: Cardiology, Nursing, Respiratory Therapy, Pharmacy and Care Team
Subjective
-
Date of Service: August 04, 2023
No issues overnight. Denies CP/SOB
Objective Data
-
Lab Results
08/04/23 04:46
08/04/23 04:46
PT 13.1 Sec (11.4-14.6) 07/30/23 20:39
INR 1.01 07/30/23 20:39
APTT 30.8 Sec (23.4-35.0) 07/30/23 20:39
Vital Signs
Vital Signs
Temp Pulse Resp BP Pulse Ox
97.9 F 78 18 139/85 97
08/03/23 19:15 08/03/23 19:45 08/03/23 19:15 08/03/23 19:16 08/03/23 19:15
CT Intake/Output/Weight
08/03/23 08/03/23 08/04/23
06:59 18:59 06:59
Intake Total 720 / 720 480 / 840 360 / 840
Balance 720 / 720 480 / 840 360 / 840
SaO2: 97 (RA)
Physical Exam
-
General: Awake, Oriented and AOx3
Cardiovascular: Regular rate & rhythm, No Murmurs and No Gallop
Respiratory: Clear
Sternum: Stable
Incision: Clean, Dry, Intact and Dressing Intact
Extremities: No Edema
Data Reviewed
-
Lab Results: Results Reviewed
Medications: Active Meds Reviewed
Chest X-Ray: Report Reviewed and Image Reviewed
ECG: Report Reviewed and Image Reviewed
[2023-08-04 08:40] VITALS: BP 143/80
[2023-08-04] MEDS: PROTONIX 40 MG PO (08:43)
[2023-08-04] MEDS: LOPRESSOR 50 MG PO ×2 (08:43→19:15)
[2023-08-04] MEDS: NORVASC 5 MG PO (08:43)
[2023-08-04] MEDS: SENOKOT-S 1 TABLET PO (08:43)
[2023-08-04] MEDS: ASPIR LOW (ENTERIC COATED) 81 MG PO (08:43)
[2023-08-04 11:12] VITALS: BP 134/92
--- NOTE | 2023-08-04 12:25 | PTCARENOTE ---
Assumed care of patient from previous nurse. Patient is awaiting MVR tomorrow, oob ambulating in the shelby. No change noted since the previous assessment.
--- NOTE | 2023-08-04 13:09 | W.PN.OMFS ---
Today's Communication
-
NKDA
Assessment / Plan
-
DENTALLY CLEARED FOR VALVULAR HEART SURGERY
RABIA SINGLETON, DMD OMFS
[phone]
Subjective Data
-
OMFS DENTAL CLEARANCE FOR VALVULAR HEART SURGERY
POST WORKUP, WITH VEGETATIONS, THOUGHT TO BE ENDOCARDITIS
CONSULT DICTATED
Objective Data
-
Vitals, I&O and Lab Results:
Vital Signs
Temp Pulse Resp BP Pulse Ox
97.8 F 66 16 134/92 98
08/04/23 11:12 08/04/23 11:12 08/04/23 04:38 08/04/23 11:12 08/04/23 11:12
Intake and Output
08/03/23 08/04/23 08/05/23
06:59 06:59 06:59
Intake Total 720 / 720 840 / 840
Balance 720 / 720 840 / 840
Intake:
Oral fluids 720 / 720 840 / 840
Other:
Number of approximated MODERATE 2 1
amounts of urine
Lab Data
08/04/23 04:46
08/04/23 04:46
Plt Count 149 10^3/uL (130-400) 08/04/23 04:46
Microbiology
07/31/23 06:01 Blood Culture - Preliminary
Blood/Venous No Growth in 4 days- Final report to follow
07/31/23 05:24 Blood Culture - Preliminary
Blood/Venous No Growth in 4 days- Final report to follow
08/01/23 03:37 Blood Culture - Preliminary
Blood/Venous No Growth in 72 hours- Final report to follow
Physical Exam
-
DENTITION INTACT
RADIOGRAPH WITHOUT INDICATION OF DISEASE
[2023-08-04 16:09] VITALS: BP 134/87
[2023-08-04] MEDS: LIPITOR 40 MG PO (18:05)
[2023-08-04 19:16] VITALS: BP 153/77
[2023-08-04 23:26] VITALS: BP 133/85
[2023-08-05] VITALS (10 sets, daily range): BP systolic 100–140; BP diastolic 69–87
--- NOTE | 2023-08-05 01:38 | PTCARENOTE ---
Pt first round CVOR prep completed: clipped, showered with CHG, gown and linens changed, new BP cuff.
--- NOTE | 2023-08-05 04:46 | W.PN.CT ---
Today's Communication / Plan
-
-No major issues overnight. Hemodynamically and neurologically intact. Denies CP/SOB
-Cont. current meds (ASA, Lopressor, Lipitor, Norvasc; no longer on antibiotics)
-For Mv repair +/- REESE clip due to frequent PAC/PVCs with Dr. Lopez today as second case
Assessment / Plan
-
Impression:
-Moderate MR, suspected a flailed segment of P1/2
-Normal ESR and CRP, making the likelihood of endocarditis somewhat low- Abx stopped 07/30. Blood cultures are unrevealing
-L hand cellulitis/b/l wrist lesions - improving, s/p Tdap at [facility]
-Chest CT at [facility]: no PE
-HTN/HLD
-Frequent PVCs - continue BB
-elevated HS-trops without ischemia
-Cath 07/30/23: non-obstructive CAD
-EF 55-60%
-Current smoker 1-1.5 ppd for 30 yrs
-Hx alcohol, quit 2 years ago
-Hx GERD
-Hx L inguinal hernia repair
-Hx R knee surgery
-frequent PACs, PVCs, occasional couplet or triplet - feels palpitations, denies any dizziness, CP or SOB
Chest/abdomen/pelvis CTA 07/30:
Mild calcific atherosclerotic changes of the thoracic aortic arch and descending thoracic aorta.
Thoracic and abdominal aorta within the limits of normal in caliber and homogeneous in appearance.
Limited by cardiac motion, small amorphous area of decreased attenuation associated with the posterior mitral valve leaflet possibly corresponding to the small lesion/mass seen on cardiac echo.
Limited on this study, suggestion of single small bilateral low-attenuation renal lesions too small to characterize, possibly cysts.
Sigmoid diverticulosis.
Cannot exclude small fat only containing right inguinal hernia.
Discussed patient care with: Cardiology, Nursing, Respiratory Therapy, Pharmacy and Care Team
Subjective
-
Date of Service: August 05, 2023
No issues overnight. Denies CP/SOB
Objective Data
-
Lab Results
08/04/23 04:46
08/04/23 04:46
PT 12.9 Sec (11.4-14.6) 08/04/23 04:46
INR 0.99 08/04/23 04:46
APTT 32.7 Sec (23.4-35.0) 08/04/23 04:46
Vital Signs
Vital Signs
Temp Pulse Resp BP Pulse Ox
97.7 F 55 18 133/85 97
08/04/23 23:26 08/05/23 02:30 08/04/23 23:26 08/04/23 23:26 08/04/23 23:26
CT Intake/Output/Weight
08/04/23 08/04/23 08/05/23
06:59 18:59 06:59
Intake Total 360 / 840 480 / 480
Balance 360 / 840 480 / 480
SaO2: 97 (RA)
Physical Exam
-
General: Awake, Oriented and AOx3
Cardiovascular: Regular rate & rhythm, Murmur (2/6 systolic), No Rub and No Gallop
Respiratory: Clear
Extremities: No Edema
Data Reviewed
-
Lab Results: Results Reviewed
Medications: Active Meds Reviewed
Chest X-Ray: Report Reviewed and Image Reviewed
ECG: Report Reviewed and Image Reviewed
--- NOTE | 2023-08-05 06:24 | W.CVOR.SURPR ---
CVOR Surgeon Immed Pre Op
-
I have examined this patient prior to performance of the scheduled procedure.
The patient's condition is unchanged from the time of the dictated/written History and
Physical and the patient is able to undergo the scheduled procedure.
We have discussed multiple times the conduct and plan of the operation. Mr. Aguilera is aware and has no further questions.
He is also aware he will be a to follow case today - as he opted for sooner surgery.
Plan HP MV repair + REESE Ligation due to his frequent PACs.
--- NOTE | 2023-08-05 07:00 | PTCARENOTE ---
Bedside walking rounds report received. Patient seen on rounds resting in bed. Oriented x 3. Denies pain. NSR with PVC. Awaiting CVOR with Dr. Lopez MVR REESE clip. See flow record for remaining assessments.
--- NOTE | 2023-08-05 07:20 | PTCARENOTE ---
2nd round CVOR prep completed. Showered, New gown, bed switched to CV bed, new linens, new leads, new BP cuff.
--- NOTE | 2023-08-05 08:56 | CM ---
Reviewed chart. Mr. Aguilera is in the operating room today. Prior to admission he resides with his spouse in a two story home with twelve steps to enter. Prior to admission he was independent with ambulation and adls. Medical work-up in progress.
The discharge plan is to return home with his spouse and a home visit by the Cardiothoracic Transitional Care Nurse when medically stable.
--- NOTE | 2023-08-05 10:00 | PTCARENOTE ---
Pre op meds given metropolol 25mg po given Patient for cvor around 12pm. Full pre cvor chg cloth bath done. All pre op clipped sites acceptable. NSR on monitor.
[2023-08-05] MEDS: BACTROBAN 2% OINTMENT 1 APPLIC NASAL ×2 (10:01→19:20)
[2023-08-05] MEDS: PROTONIX 40 MG PO (10:02)
[2023-08-05] MEDS: ASPIR LOW (ENTERIC COATED) 81 MG PO (10:02)
[2023-08-05] MEDS: MAGNESIUM OXIDE 500 MG PO (10:02)
[2023-08-05] MEDS: NORVASC 5 MG PO (10:02)
[2023-08-05] MEDS: SENOKOT-S 1 TABLET PO (10:02)
[2023-08-05] MEDS: LOPRESSOR 25 MG PO (10:02)
--- NOTE | 2023-08-05 10:02 | W.PN.ID1 ---
Date of Service
Date of Service: August 05, 2023
Today's Communication
Sign off
Assessment / Plan
Abnormal mitral valve with suspected flail segment.
Recommendations:
Cultures have been negative.
Little concern at present for endocarditis.
For cardiac surgery later today.
Little more to add from a Infectious Diseases standpoint.
Will see you again at your request.
����������������������������������������������������������
Chief Complaint
-: Other (Abnormal mitral valve)
Subjective / Review of Systems
Review of Systems: No Fever and No Chills
Vital Signs / Physical Exam
Vital Signs
Vital Signs
Temp Pulse Resp BP Pulse Ox
98.2 F 71 18 131/84 97
08/05/23 06:30 08/05/23 07:15 08/05/23 06:30 08/05/23 06:28 08/05/23 06:30
Physical Exam
Constitutional: No Acute Distress, Comfortable and Non-toxic
Eyes: Sclera Anicteric
Pulmonary: Non Labored
Gastrointestinal: Non Distended
Neurological: Awake and Alert
Psychological: Calm
Objective Data
Lab Data
Lab Results
08/04/23 04:46
08/04/23 04:46
ESR 19 mm/hour (0-20) 07/31/23 12:46
PT 12.9 Sec (11.4-14.6) 08/04/23 04:46
INR 0.99 08/04/23 04:46
APTT 32.7 Sec (23.4-35.0) 08/04/23 04:46
Estimated Creat Clear 111 ml/min 08/04/23 04:46
Total Bilirubin 0.8 mg/dl (0.2-1.3) 08/04/23 04:46
AST 28 U/L (17-59) 08/04/23 04:46
ALT 26 U/L (0-50) 08/04/23 04:46
Alkaline Phosphatase 63 U/L (38-126) 08/04/23 04:46
C-Reactive Protein 9.50 mg/L (0.0-10.00) 07/31/23 12:46
Most recent labs reviewed.
Micro Results:
07/31/23 06:01 Blood Culture - Final
Blood/Venous No Growth - Final Report
07/31/23 05:24 Blood Culture - Final
Blood/Venous No Growth - Final Report
08/01/23 03:37 Blood Culture - Preliminary
Blood/Venous No Growth in 4 days- Final report to follow
07/31/23 05:24 MRSA Screen - Final
Nose No Methicillin Resistant Staphylococcus aureus isolated.
Imaging:
07/31/2023 CXR (2 view): No evidence of active cardiopulmonary disease.
07/30/2023 ECHO ([facility]): Reviewed records indicate a large rectangular shape with multiple small sized attached masses likely encasing P2 with scalloping of the posterior leaflet on the atrial side.
[2023-08-05] MEDS: LOPRESSOR PO (10:03)
[2023-08-05] MEDS: PROTONIX PO (10:04)
--- NOTE | 2023-08-05 11:40 | PTCARENOTE ---
Patient to cvor via bed. All preop med reported to cvor circ RN/anesthesia at bedside. Pt's family here and aware of patient leaving for cvor.
[2023-08-05 12:39] LABS: ACT+ - POC 90 Seconds (82-134)
[2023-08-05 12:42] LABS: B.E. - POC 0.5 mmol/L; Glucose - POC 109 mg/dl (65-99); HCO3 - POC 27 mmol/L (21-29); Hematocrit - POC 40 % PCV (42-52); Hemodilution- POC No; Hemoglobin Calculated - POC 13.5; Ionized Calcium - POC 1.23 mmol/L (1.12-1.27); O2 Saturation %Calculated-POC 99.1 5 (92-96); PCO2 - POC 47 mmHg (35-45); PO2 - POC 144 mmHg (80-100); Sodium - POC 142 mmol/L (135-145); pH - POC 7.36 (7.35-7.45)
[2023-08-05 12:46] LABS: Urine Albumin Negative (Neg - Trace); Urine Bilirubin Negative (Negative); Urine Character Clear (Clear); Urine Color Yellow; Urine Glucose Negative (Negative); Urine Ketone Negative (Negative); Urine Leukocyte Negative (Negative); Urine Nitrite Negative (Negative); Urine Occult Blood Negative (Negative); Urine Urobilinogen Negative (Neg - 1+)
[2023-08-05] MEDS: ANCEF 10 IV ×2 (12:50→16:40)
[2023-08-05 13:42] LABS: ACT+ - POC 917 Seconds (82-134)
[2023-08-05 14:04] LABS: Glucose - POC 109 mg/dl (65-99); HCO3 - POC 29 mmol/L (21-29); Hematocrit - POC 34 % PCV (42-52); Hemodilution- POC Yes; Hemoglobin Calculated - POC 11.5; Ionized Calcium - POC 1.03 mmol/L (1.12-1.27); O2 Saturation %Calculated-POC 99.9 5 (92-96); PCO2 - POC 59 mmHg (35-45); PO2 - POC 284 mmHg (80-100); Potassium - POC 5.4 mmol/L (3.6-5.0); Sodium - POC 138 mmol/L (135-145); pH - POC 7.29 (7.35-7.45)
[2023-08-05 14:23] LABS: Glucose - POC 133 mg/dl (65-99); HCO3 - POC 27 mmol/L (21-29); Hematocrit - POC 35 % PCV (42-52); Hemodilution- POC Yes; Ionized Calcium - POC 1.05 mmol/L (1.12-1.27); O2 Saturation %Calculated-POC 99.9 5 (92-96); PCO2 - POC 39 mmHg (35-45); PO2 - POC 263 mmHg (80-100); Potassium - POC 5.3 mmol/L (3.6-5.0); Sodium - POC 138 mmol/L (135-145); pH - POC 7.45 (7.35-7.45)
[2023-08-05 14:56] LABS: ACT+ - POC 802 Seconds (82-134)
[2023-08-05 15:12] LABS: B.E. - POC -1.3 mmol/L; Glucose - POC 156 mg/dl (65-99); HCO3 - POC 26 mmol/L (21-29); Hematocrit - POC 31 % PCV (42-52); Hemodilution- POC Yes; Hemoglobin Calculated - POC 10.6; Ionized Calcium - POC 1.06 mmol/L (1.12-1.27); O2 Saturation %Calculated-POC 95.5 5 (92-96); PCO2 - POC 54 mmHg (35-45); PO2 - POC 89 mmHg (80-100); Potassium - POC 5.3 mmol/L (3.6-5.0); Sodium - POC 139 mmol/L (135-145); pH - POC 7.29 (7.35-7.45)
[2023-08-05 15:20] LABS: B.E. - POC -0.9 mmol/L; Glucose - POC 165 mg/dl (65-99); HCO3 - POC 26 mmol/L (21-29); Hematocrit - POC 37 % PCV (42-52); Hemodilution- POC Yes; Hemoglobin Calculated - POC 12.5; Ionized Calcium - POC 1.06 mmol/L (1.12-1.27); PCO2 - POC 49 mmHg (35-45); PO2 - POC 144 mmHg (80-100); Potassium - POC 5.6 mmol/L (3.6-5.0); Sodium - POC 139 mmol/L (135-145); pH - POC 7.33 (7.35-7.45)
[2023-08-05 15:49] LABS: B.E. - POC -1.3 mmol/L; Glucose - POC 132 mg/dl (65-99); HCO3 - POC 26 mmol/L (21-29); Hematocrit - POC 37 % PCV (42-52); Hemodilution- POC Yes; Hemoglobin Calculated - POC 12.7; Ionized Calcium - POC 1.29 mmol/L (1.12-1.27); O2 Saturation %Calculated-POC 99.6 5 (92-96); PCO2 - POC 51 mmHg (35-45); PO2 - POC 202 mmHg (80-100); Potassium - POC 5.7 mmol/L (3.6-5.0); Sodium - POC 140 mmol/L (135-145); pH - POC 7.31 (7.35-7.45)
[2023-08-05 15:51] LABS: ACT+ - POC 533 Seconds (82-134)
[2023-08-05 16:16] LABS: ACT+ - POC 496 Seconds (82-134)
[2023-08-05 16:20] LABS: B.E. - POC -1.8 mmol/L; Glucose - POC 110 mg/dl (65-99); HCO3 - POC 22 mmol/L (21-29); Hematocrit - POC 37 % PCV (42-52); Hemodilution- POC Yes; Hemoglobin Calculated - POC 12.6; Ionized Calcium - POC 1.19 mmol/L (1.12-1.27); O2 Saturation %Calculated-POC 99.9 5 (92-96); PCO2 - POC 36 mmHg (35-45); PO2 - POC 340 mmHg (80-100); Potassium - POC 5.2 mmol/L (3.6-5.0); Sodium - POC 140 mmol/L (135-145); pH - POC 7.41 (7.35-7.45)
[2023-08-05 16:58] LABS: ACT+ - POC 101 Seconds (82-134)
[2023-08-05 16:59] LABS: B.E. - POC -3.6 mmol/L; Glucose - POC 107 mg/dl (65-99); HCO3 - POC 23 mmol/L (21-29); Hematocrit - POC 36 % PCV (42-52); Hemodilution- POC Yes; Hemoglobin Calculated - POC 12.3; Ionized Calcium - POC 1.32 mmol/L (1.12-1.27); O2 Saturation %Calculated-POC 95.5 5 (92-96); PCO2 - POC 47 mmHg (35-45); PO2 - POC 87 mmHg (80-100); Potassium - POC 4.8 mmol/L (3.6-5.0); Sodium - POC 142 mmol/L (135-145)
--- NOTE | 2023-08-05 17:04 | W.PN.CT.SURG ---
Addendum entered and electronically signed by Davide Lopez MD 08/06/23 06:32:
CHADsVASc score: 4 (age, HTN CHF [diastolic])
Due to his elevated score and history of PACs/PVCs, I felt it was medically indicated to prophylactically manage his left atrial appendage to mitigate that stroke risk.
Original Note:
CT Surgery Operative Note
-
CARDIAC SURGERY OPERATIVE REPORT
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
Postoperative Diagnosis: Same
Procedure(s) Performed:
1. Right mini thoracotomy with right common femoral artery and vein cannulation under CHRIST guidance
2. Radical mitral valve repair (30 mm annuloplasty band, reapproximation of clefts at P1/P2 and P2/P3 and A1/A2 and A2/A3, CV 4 Little Silver-Zoran cords placed to P2 scallop and a single CV 4 Little Silver-Zoran suture to A2 scallop)
3. Placement temporary ventricular pacing wires
4. Trans esophageal echocardiography
5. Left atrial appendage exclusion with a 35 mm clip
Date of Surgery: 08/05/2023
Comorbidities:
1. Uncontrolled hypertension
2. History of smoking
3. GERD
4. Hyperlipidemia
5. Exam is degeneration of the mitral valve with significant flail and prolapse of P2 scallop, type II mitral valve disease
Attending Surgeon: Dvaide Lopez MD, MS
Assistants: Irene Whitehead PA-C (present and necessary for retraction, suctioning, exposure, suture management, wound closure, etc. under my direction)
Anesthesiology: Isidoro Justice MD and Vannessa Howell CRNA
Scrub and Circulating RNs: Magaly Angel, ALEXANDRA, Moraima Haro RN
Pit Operator: Saman Oakley CCP
Anesthesia: GETA
EBL: per perfusion records
Products: None
CPB Time: 152 minutes
Aortic Cross Clamp Time: 121 minutes
Indication(s) for Procedures: This is a 52-year-old male who initially presented to the hospital with sores on his hands that were being worked up. He was found to have severe hypertension as well as multiple PVCs and a run of VT and underwent a
cardiac workup as well. As part of his workup he underwent a transthoracic echocardiogram which initially was thought to have a large mass on the posterior leaflet of the mitral valve. Further workup with a transesophageal echocardiogram revealed
a very large flail segment with severe mitral valve insufficiency. He did note mild symptoms over the last month where he felt somewhat tired and short of breath although not significant. He was transferred to our hospital for further evaluation.
I offered him the opportunity of going home 3 back as elective procedure as I felt this was a flail segment. He opted to move forward surgery.
Mitral Valve Description: Thickened mitral valve leaflets, significant flail and prolapse of the P2 scallop large cleft at P1 P2 and P2 P3. Very tall posterior leaflet. Redundant cords at the A2 scallop that were abnormally elongated..
Implants:
1. 30 mm DOBBINS PhysioFlex Band, SN [id number]
2. 35mm Medtronic Penditure REESE E Clip, SN [id number]
Specimen:
1. None
Findings: His left ventricular ejection fraction preoperatively was normal with an EF of approximate 55 to 60% with no regional wall motion abnormalities. Following surgery his EF remained the same with no new regional wall motion abnormalities.
Upon initial separation cardiopulmonary bypass there was mild residual insufficiency at the P2 P3 cleft which I was not satisfied with. I opted to go back on pump and rearrest with an additional 500 cc of cardioplegia and remodeled that cleft.
Mitral valve was ultimately repaired with a 30 mm band secured in place with 10 nonpledgeted 2 Ethibond sutures secured with core knots. 2 pairs of CV 4 Little Silver-Zoran were placed to both the anterior lateral and posterior medial papillary muscle heads
to the P2 scallop. A single cord was placed A2 scallop at the posterior medial papillary muscle head. Additional redundant cords that were elongated at A2 free margin were resected as they were found to be flowing towards the LVOT producing
chordal RANDALL. After the second pump run, there was none to trace residual mitral valve insufficiency, no significant RANDALL of the leaflets, and a mean gradient of 1 across the valve with a cardiac index of 2. He was slow junctional with intermittent
sinus rhythm and so was placed on dobutamine low-dose for rate. No products were given. The left atrial appendage was verified to be free of any thrombus or debris preoperatively. Across the transverse sinus I deployed a 35 mm clip using a 5 mm
thoracoscopic camera as a guide to ensure flush deployment. The left atrial appendage was verified to be flush and totally occluded at the conclusion of the case on transesophageal echocardiogram.
Description of Procedure: The patient was brought to the operating room and placed supine in the table with their right side bumped up and right arm down. Arterial and central access was performed by anesthesiology. The patient was prepped from chin
to toes in the typical sterile fashion. Trans esophageal evaluation of cardiac function and all valvular structures was conducted. Before commencing, a time out was performed by all members of the team. All were in agreement with the procedure and
laterality and I proceeded. A small right groin incision was made to expose the common femoral artery and vein. A total of 45,000 units of heparin was given. A 5-6 cm right lateral thoracotomy was performed over the 4th intercostal space verified by
visualization of the hilum. The common femoral artery and vein were cannulated under transesophageal guidance using open Seldinger technique. The arterial line was verified to have an appropriate bounce and pressure correlating with testing. Once
the ACT was above 400, retrograde autologous priming was done and we commenced cardiopulmonary bypass. Target core temperature was 34�C.
Carbon dioxide was used to flood the field. The course of the phrenic nerve was identified to prevent injury. The pericardium was opened and two stay sutures were placed to facilitate a ``pericardial table.�� The oblique sinus was developed followed
by the inter atrial groove. An antegrade root vent was inserted and secured with a pursestring suture. The pump flow and mean arterial pressure were lowered and an aortic cross clamp was applied to the ascending aorta. A total of 1.2L initial dose
of Antegrade cardioplegia was delivered. We had rapid electro myocardial quiescence at 200cc of cardioplegia. The ventricle was monitored for distension by echocardiogram during this time. The left atrium was incised and enlarged. A left atrial lift
retractor was placed. The mitral valve was inspected. The mitral valve was repaired as described above. The left atriotomy was closed with 3-0 prolene in a running fashion leaving a ventricular vent in place to de-air. Unipolar ventricular pacing
wire was placed on the base of the right ventricle. At this point left atrial appendage clip was deployed to be of the transverse sinus using a 5 mm camera for better visualization. Upon initial review of the mitral valve, there was mild residual
insufficiency which I was not satisfied with. I elected to recross clamp and delivered an additional 500 cc of antegrade cardioplegia and to arrest the heart once more and entered via the left atrium through my previous incision. Additional
remodeling stitches were placed at P2 P3. The patient was placed into Trendelenburg position and pump flows were lowered. The clamp was slowly removed with the root vent turned on. De-airing maneuvers were performed. The overall result was good
with no to trace residual mitral valve insufficiency. We started to rewarm with a target of 36.5�C.
As the heart recovered, the mitral valve and ventricular function were assessed under transesophageal echocardiogram. The LV vent and root vents were removed. Once weaning parameters were satisfactory, cardiopulmonary bypass flow was lowered until
we were off cardiopulmonary bypass the mitral valve was inspected again. All surgical sites were inspected for hemostasis and appeared appropriate. The lines were clamped and the arterial was relocated to the venous cannula to give back volume. A
test dose of protamine was delivered and patient was monitored for any adverse reactions followed by complete protamine dosing. The femoral vessels were decannulated and repaired as indicated. The pericardium was approximated with 2-0 ethibond
sutures secured with corknots. One 19F Zurdo drain remained in the pleural space and one 24F zurdo drain in the pericardium. There was an excellent palpable distal to the SALON SUPERVISOR cannulation site. Local analgesia was injected to the thoracotomy. The
incision was closed in layers in a running fashion.
All instrument, sponge, and needle counts were confirmed to be correct x 2 at the end of the operation. The patient was transferred to the cardiac intensive care unit in critical but stable condition.
I, Dr. Davide Lopez, was present, scrubbed for, and performed all critical elements of this procedure.
Davide Lopez MD, MS
Cardiothoracic Surgeon
[facility]
This dictation was created using the [employer] dictation system. Please excuse any grammatical, typographical, or 'sound alike' errors
[2023-08-05] MEDS: CARDENE 200 IV (17:41)
--- NOTE | 2023-08-05 17:42 | PTCARENOTE ---
Patient received from [facility]. Patient is unresponsive s/p anesthesia. Unable to assess orientation and muscle strength grading. Pupils 2mm sluggish bilaterally. NSR. HR 60s-70s. Audible heart tones. V wire maintained to pacer box (received pacer box
off from [facility]). Thresholds checked and new settings for pacer box: VVI. HR 40, mA 10, sensitivity 4. No pacing required at this time. RIJ cordis and swan maintained at 45cm. PA pressures 40s/10s-20s. CVP 14-16. CO 6.15, CI 2.86. SVR 936. R radial
a-line maintained with BP 120s/60s. Lines leveled/zeroed. Levo gtt received on standby. Dobutamine gtt received on 3mcgs/kg/min. VIP and Cordis KVOs adjusted. Precedex gtt received on 0.6mcgs/kg/hr. Insulin gtt received at 0.5 units/hr - adjusted
for critical care glycemic protocol. PIV maintained. Palpable pulses. Trace generalized edema. 8.0 ETT, 24 at the lip. Ventilator settings: SIMV. RR 12, TV 500, PEEP 10 (Dr. oLpez changed upon arrival to unit), FiO2 60%. Oxygen saturation 100%. Upon
auscultation, bilateral anterior breath sounds are diminished. CTx2 maintained to -20cm wall suction with minimal red drainage. No air leaks noted. Abdomen round. Hypoactive BS. Ramos maintained with adequate blood-tinged, yellow UOP. Complete
bedrest s/p CVOR. Assist x2 to turn/reposition. R lateral chest incision is approximated with surgical adhesive and open to air. R medial axilla puncture sites x3 are approximated with surgical adhesive and open to air (one has a dressing which is
clean, dry, intact). R groin incisions x2 are approximated with surgical adhesive and open to air. Will continue to monitor.
[2023-08-05 17:44] LABS: B.E. -2.6 mmol/L; HCO3 24.9 mmol/L (21-28); Ionized Calcium 1.25 mMOL/L (1.15-1.33); O2 Saturation % 99.4 % (94-98); PCO2 53 mmHg (35-48); PO2 130 mmHg (83-108); Potassium 4.6 mMOL/L (3.5-5.1); Sodium 136 mMOL/L (136-145); pH 7.28 (7.35-7.45)
[2023-08-05 17:46] LABS: Hematocrit 36.8 % (39.0-52.0); Hemoglobin 13.2 g/dL (13.0-18.0); Platelet Count 121 10^3/uL (130-400)
--- NOTE | 2023-08-05 17:48 | W.PN.UPDATE ---
Update Note
Progress Note Update
52 year old male transferred from [facility] for surgical evaluation of severe MR and suspected mitral vegetation on 07/29/23. Initially admitted for left wrist cellulitis, treated with Augmentin and converted to Cefepime/ Vanco after echo
reported large mass on posterior MVL. Antibiotics stopped per ID on 07/30 after negative blood cultures and low suspicion for endocarditis.
IV fluids: 1200
U.O.:� 300
Blood:� none
Wires:� V-wires
Inotropes:� Dobutamine
Pressors:� none
Sedatives:� Precedex
�
NEURO: sedated on Precedex, pupils +2mm B/L
RESP: #8OT @24cm> 500/60%/14/10. Lungs clear B/L. 1 mediastinal (25cc on arrival) and R pleural (10cc on arrival s/p stripping) chest tubes to -20cm suction. Sanguineous drainage
CV: RRR +S1, S2, no S3, no�rub, no murmur. Dermabond to right mini thoracotomy. RIJ w/Tyrone locked @ 47cm. PA 48/19; CVP 13; C.O XX/CI XX
ABD: round, soft, no BS
EXT: no edema, +2/4 DP pulses B/L, no femoral bruit, right femoral cannulation site intact; left radial A-line intact
: Ramos with light dhiraj color urine
�
A/P: POD #0 s/p mitral valve repair #30mm annuloplasty band, reapproximation of clefts @ P1/P2, P2/P3, A1/A2, and A2/A3. CV4 Gor-Zoran chords to P2 scallop and single CV4 Gor-Zoran suture to A2 scallop. Left atrial appendage #35mm clip for frequent PACs
CHADsVASc score: 4 (age, HTN CHF [diastolic])
CHRIST: EF�55% with mild chordal RANDALL. MV 4/(1)mmHg. Mild TR. No flow beyond clip
- wean and extubate
- will need instruction regarding antibiotic prophylaxis for dental and invasive procedures
- ASA only for mitral repair
- will need pre- discharge TTE
# HTN
- was on Norvasc 5mg daily pre-op>resume once off inotrope and BP permits
�# GERD
- continue Protonix
�
# Tobacco abuse
- life long smoking cessation
- assess need for nicotine patch
[2023-08-05 17:49] LABS: Glucose - Point of Care 116 mg/dl (70-99)
[2023-08-05] MEDS: LIPITOR PO (17:51)
[2023-08-05] MEDS: NOVOLOG FLEXPEN SC (17:51)
[2023-08-05] MEDS: TYLENOL PO (17:51)
[2023-08-05] MEDS: NSS 500 IV (17:51)
[2023-08-05 17:56] LABS: INR 1.34; PT 16.4 Sec (11.4-14.6)
[2023-08-05 17:57] LABS: APTT 29.2 Sec (23.4-35.0)
[2023-08-05 18:06] LABS: Blood Urea Nitrogen 16 mg/dl (9-20); Estimated Creatinine Clearance 83 ml/min; Glucose 114 mg/dl (70-99); Magnesium 2.9 mg/dl (1.6-2.3)
[2023-08-05] MEDS: DILAUDID 0.5 MG IV (18:21)
[2023-08-05 18:50] LABS: Glucose - Point of Care 121 mg/dl (70-99)
[2023-08-05 19:14] LABS: B.E. -2.7 mmol/L; HCO3 23.7 mmol/L (21-28); O2 Saturation % 96.1 % (94-98); PCO2 46 mmHg (35-48); PO2 73 mmHg (83-108); pH 7.32 (7.35-7.45)
[2023-08-05] MEDS: SENOKOT-S PO (19:27)
[2023-08-05] MEDS: SODIUM BICARBONATE 50 MEQ IV (19:35)
--- NOTE | 2023-08-05 19:40 | PTCARENOTE ---
received patient from previous RN. Drowsy but arousable. following all commands and moves all extremities. breathing over vent. GREEN PIPEFITTER placed pt on CPAP. NSR on monitor HR 60s. V wire to back up rate 40/10. no pacing noted. 94% on CPAP settings. lungs
diminished but clear. For repeat ABG 1954. CTx2 to -20 wall suction. no air leak/crepitus. Draining serosang. Ramos draining tea colored urine. Pulses palpable. Trace gen edema. Surgical sites stable. will continue to monitor.
[2023-08-05 20:03] LABS: Glucose - Point of Care 120 mg/dl (70-99)
[2023-08-05 20:08] LABS: B.E. 1.5 mmol/L; HCO3 27.2 mmol/L (21-28); Ionized Calcium 1.21 mMOL/L (1.15-1.33); O2 Saturation % 97.2 % (94-98); PCO2 46 mmHg (35-48); PO2 73 mmHg (83-108); Potassium 4.5 mMOL/L (3.5-5.1); pH 7.38 (7.35-7.45)
[2023-08-05 20:09] LABS: Hematocrit 36.5 % (39.0-52.0); Hemoglobin 13.2 g/dL (13.0-18.0)
[2023-08-05] MEDS: DILAUDID 0.25 MG IV ×2 (20:23→23:20)
--- NOTE | 2023-08-05 20:36 | PTCARENOTE ---
extubated to 6L nc 2021. pulse ox 93%. IS done to 750. pain medication given for pain reported by patient. no longer in waiting room. spoke to daughter on phone and updated that patient is now extubated and doing well. will continue to monitor.
[2023-08-05] MEDS: FLEXERIL 5 MG PO (21:37)
[2023-08-05] MEDS: LOW STRENGTH ASPIRIN 81 MG PO (21:37)
[2023-08-05] MEDS: NEURONTIN 200 MG PO (21:38)
[2023-08-05] MEDS: TYLENOL 1000 MG PO (21:38)
[2023-08-05 21:43] LABS: Glucose - Point of Care 106 mg/dl (70-99)
[2023-08-06] VITALS (31 sets, daily range): BP systolic 96–149; BP diastolic 62–92; PULSE 2–62; O2SAT 91; BMI 31.5
[2023-08-06 00:41] LABS: Glucose - Point of Care 112 mg/dl (70-99)
[2023-08-06] MEDS: DILAUDID 0.5 MG IV ×4 (00:43→17:22)
[2023-08-06] MEDS: ANCEF 5 IV ×3 (00:44→15:26)
--- NOTE | 2023-08-06 03:47 | W.PN.CT ---
Today's Communication / Plan
-
Plan:
-No major issues overnight. Hemodynamically and neurologically intact
-Successfully extubated on 08/05/23 @ 2021
-On Dobutamine gtt @ 2 mcg/kg/min and insulin gtt per protocol
-Last CI 2.7, Mixed venous O2sats 71.2%, U/O since OR 720 mL
-Cont. current meds (ASA, Lipitor; will hold AM dose of Amiodarone and Lopressor given need for dobutamine and bradycardia)
-Monitor chest tube output: Med 110/140, R pleural 55/100
-D/C'd swan and a-line once able to wean off dobutamine
-Transfer to [facility] phase once off insulin gtt
-D/C kendall
-Maintain cordis
-Maintain temporary pacer wires (will cut before d/c home)
-Encourage use of IS
-Wean off of O2 as tolerated
-Cont. to encourage smoking cessation
-OOB into chair/Ambulate
Assessment / Plan
-
Assessment:
-S/P Right mini thoracotomy with right common femoral artery and vein cannulation under CHRIST guidance/Radical mitral valve repair (30 mm annuloplasty band, reapproximation of clefts at P1/P2 and P2/P3 and A1/A2 and A2/A3, CV 4 [place]-Zoran cords placed
to P2 scallop and a single CV 4 [place]-Zoran suture to A2 scallop)/Left atrial appendage exclusion with a 35 mm clip, by Dr. Lopez, 08/05/23, pod#1
-Severe MR/degeneration of the mitral valve with significant flail and prolapse of P2 scallop, type II mitral valve disease
-Dilated Asc. Aorta (3.5 cm)
-LVEF 55% per intraop CHRIST
-L hand cellulitis/b/l wrist lesions - improved, s/p Tdap at [facility]
-Chest CT at [facility]: no PE
-HTN/HLD
-Frequent PAC's/PVCs
-elevated HS-trops without ischemia
-Cath 07/30/23: non-obstructive CAD
-Current smoker 1-1.5 ppd for 30 yrs
-Hx alcohol, quit 2 years ago
-Hx GERD
-Hx L inguinal hernia repair
-Hx R knee surgery
-Acute postop blood loss/Anemia (stable without transfusion)
-Acute postop thrombocytopenia (stable without active bleed)
-Acute postop atelectasis
-Acute postop hypovolemia with subsequent hypervolemia
Discussed patient care with: Cardiology, Nursing, Respiratory Therapy, Pharmacy and Care Team
Subjective
Procedure
S/P Right mini thoracotomy with right common femoral artery and vein cannulation under CHRIST guidance/Radical mitral valve repair (30 mm annuloplasty band, reapproximation of clefts at P1/P2 and P2/P3 and A1/A2 and A2/A3, CV 4 [place]-Zoran cords placed to
P2 scallop and a single CV 4 [place]-Zoran suture to A2 scallop)/Left atrial appendage exclusion with a 35 mm clip, by Dr. Lopez, 08/05/23, pod#1
-
Date of Service: August 06, 2023
Pt c/o incisional pain, otherwise feels well
Objective Data
-
PT 16.4 Sec (11.4-14.6) H 08/05/23 17:38
INR 1.34 08/05/23 17:38
APTT 29.2 Sec (23.4-35.0) 08/05/23 17:38
Vital Signs
Vital Signs
Temp Pulse Resp BP Pulse Ox
98.3 F 58 13 113/71 94
08/06/23 02:00 08/06/23 02:00 08/06/23 02:00 08/06/23 02:00 08/06/23 02:00
CT Intake/Output/Weight
04/05/2908/05/23 08/06/23
06:59 18:59 06:59
Intake Total 480 / 480 244.4 / 728.4 484.0 / 728.4
Output Total 170 / 820 650 / 820
Balance 480 / 480 74.4 / -91.6 -166.0 / -91.6
SaO2: 94 (6)
Physical Exam
-
General: Awake, Oriented and AOx3
Cardiovascular: Regular rate & rhythm, No Murmurs and No Gallop
Respiratory: Decreased Breath Sounds (at bases, otherwise clear)
Sternum: Stable
Incision: Clean, Dry, Intact and Dressing Intact
Extremities: No Edema
Data Reviewed
-
Lab Results: Results Reviewed
Medications: Active Meds Reviewed
Chest X-Ray: Report Reviewed and Image Reviewed
ECG: Report Reviewed and Image Reviewed
[2023-08-06 04:07] LABS: Glucose - Point of Care 107 mg/dl (70-99)
[2023-08-06] MEDS: ALBUMIN 5% 250 IV (04:11)
[2023-08-06 04:36] LABS: Hematocrit 35.3 % (39.0-52.0); Hemoglobin 12.7 g/dL (13.0-18.0); Mean Corpuscular Volume 83.3 fL (80.0-94.0); Mean Platelet Volume 11.5 fL (7.4-10.4); Platelet Count 132 10^3/uL (130-400); Red Blood Cell Count 4.24 10^6/uL (4.70-6.10); Red Cell Dist. Width 13.2 % (11.5-14.5); White Blood Cell Count 13.5 10^3/uL (4.8-10.8)
[2023-08-06 04:38] LABS: Mixed Venous O2 Saturation 71.2 %
[2023-08-06 04:58] LABS: Blood Urea Nitrogen 23 mg/dl (9-20); Calcium 8.6 mg/dl (8.4-10.2); Carbon Dioxide 22 mmol/L (22-30); Chloride 110 mmol/L (98-107); Estimated Creatinine Clearance 83 ml/min; Glucose 100 mg/dl (70-99); Magnesium 2.5 mg/dl (1.6-2.3); Potassium 4.5 mmol/L (3.5-5.1); Sodium 137 mmol/L (135-145); eGFR > 60.00
[2023-08-06] MEDS: TYLENOL 1000 MG PO ×3 (06:00→22:16)
[2023-08-06 06:04] LABS: Glucose - Point of Care 96 mg/dl (70-99)
--- NOTE | 2023-08-06 06:16 | PTCARENOTE ---
final CI this AM 2.74 on 2 mcg dobut. weaned to 1.5 mcg. pain meds given per orders see JUL. will continue to monitor.
--- NOTE | 2023-08-06 07:18 | W.PN.CD ---
Today's Communication / Plan
-
Routine post operative management.
Wean inotropes as hemodynamics will allow.
Daily weights.
He is not quite ready for diuretics.
Impression / Plan
-
Impression/Plan: 52 y/o male transferred from [facility] with new severe primary mitral regurgitation, initially concerning for infectious endocarditis, now s/p MV repair and left atrial appendage ligation.
#Mitral regurgitation, severe
-Mechanism appears to be flail leaflet, at P1/P2.
-No evidence of endocarditis. Cultures negative (previous antibiotics) but no sequelae off of antibiotics. Dental exam is negative.
-S/P radical mitral valve repair (#30 [place] Physioflex Band, SN [id number]) with reapproximation of clefts at all major scallop junctures, 4 Goretex neochords to P2 and a single neochord to A2 (08/05/2023) by Dr. Lopez.
-S/P prophylactic REESE ligation (#35 Atriclip).
-Pain control.
-Chest tube management per CT surgery.
-Not quite ready for diuresis.
#Cellulitis
-Acute, resolved.
-Appreciate ID input.
#HTN
-New diagnosis.
-Currently normotensive in the immediate post operative setting.
#PVC's:
-Improved with beta maria e.
-Echo with normal LVEF.
-Restart metoprolol when satisfied with surgical recovery.
#Non-obstructive CAD
-Chronic, stable.
-Continue ASA, statin.
#Current smoker:
-Recommended cessation.
-PFT's show normal spirometry.
Subjective/Interval History:
Surgery yesterday.
Patient extubated last night without incident.
Dobutamine weaned to 1.5 mcg/kg/min after CI 2.74 L/min/m2.
Weight 99.5 kg today (96.8 kg on 07/30/2023, no other weights recorded).
Pulse consistently in the 50's, EKG shows NSR with 1st degree AV block.
BP stable.
SaO2 94% on 6LNC.
DATA:
Intraoperative CHRIST, 08/05/2023:
CONCLUSIONS
Overall LVEF is approximately 55% with no RWMA.
Mild concentric left ventricular hypertrophy.
Mildly dilated left atrium.
Trace tricuspid regurgitation.
Severe mitral regurgitation.
The P2 scallop is quite large and is flailing into the LA (whole scallop) with
associated torn chords.
Mid ascending aorta is mildly dilated measuring 3.5 cm at the level of the RPA.
Mild sessile atheroma seen in the descending aorta and distal arch.
POST OPERATIVE FINDINGS
The patient underwent a MV repair with an (Annuloplasty band and Dequan-chords)
and ligation of the LA appendage. Postop rhythm is now junctional. RV and LV
function are normal. Overall LVEF is still approximately 55% with no new RWMA.
No significant MR noted. Mild chordal RANDALL noted. Max MV gradient measures 4
mmHg, mean is 1 mmHg. Mild TR. Trace PI. AV appears normal. A very small
residual LA appendage lumen is noted. No flow is noted beyond the clip. Aortic
scan is unchanged.
Physical Exam
Vital Signs/Labs
Vital Signs
Temp Pulse Resp BP Pulse Ox
36.6 C 51 17 127/70 94
08/06/23 06:00 08/06/23 07:00 08/06/23 07:00 08/06/23 07:00 08/06/23 07:00
08/04/23 08/05/23 08/06/23
11:59 11:59 11:59
Actual Weight 99.5 kg
08/06/23 04:00
08/06/23 04:00
PT 16.4 Sec (11.4-14.6) H 08/05/23 17:38
INR 1.34 04/01/24 17:38
APTT 29.2 Sec (23.4-35.0) 08/05/23 17:38
Magnesium 2.5 mg/dl (1.6-2.3) H 08/06/23 04:00
Physical Exam
Constitutional: No acute distress and Comfortable
EENT: Anicteric and Moist mucous membranes
Cardiovascular: Rhythm & rate is regular, Pedal edema is absent, JVD pressure is normal, S1S2 is normal and Murmur/rub/gallop absent
Respiratory: Respiratory effort normal, Lungs clear to auscul., Wheeze Absent, Crackles Absent and Rhonchi Absent
GI: Soft, Distention absent, Flat, Non tender, Normal bowel sounds and Distention present
Neuro/Psych: AO x 3
Data Reviewed
-
Date of Service: August 06, 2023
Medical Decision Making: Reviewed Test Results, Independent Historian Assessment, Test Interpretation and Review of Case with other Provider
EKG: Tracing Personally Visualized and interpreted and Report Reviewed by me
Echo: Tracing Personally Visualized and interpreted and Report Reviewed by me
X-Ray/CT/US/MRI/NUC/PET: Image Personally Visualized and interpreted and Report Reviewed by me
Medical Tests (PFT, Pathology etc): Image Personally Visualized and interpreted and Report Reviewed by me
Labs: Labs Reviewed by me
--- NOTE | 2023-08-06 07:28 | PTCARENOTE ---
Patient received from nightshift nurse. Patient is alert and oriented x4, flat affect r/t pain. SB. HR 50s. Audible heart tones. V wire maintained to pacer box (settings adjusted r/t inappropriate pacer spikes) New settings for pacer box: VVI. HR
40, mA 10, sensitivity 1. No pacing required at this time. RIJ cordis and swan maintained at 45cm. PA pressures 30s-40s/10s. CVP 15-18. CO 6.03, CI 2.80. SVR 822. R radial a-line maintained with BP 130s-140s/50s. Lines leveled/zeroed. Levo gtt
received on standby. Dobutamine gtt received on 1.5 mcgs/kg/min. VIP and Cordis KVOs maintained. Insulin gtt maintained per critical care glycemic protocol. PIV maintained. Palpable pulses. Trace generalized edema. 6L NC. Oxygen saturation 87-92%
(Dr. Lopez aware while rounding, will add Toradol to treat pain). Upon auscultation, bilateral anterior breath sounds are diminished. CTx2 maintained to -20cm wall suction with minimal red drainage. No air leaks noted. Abdomen round. Hypoactive BS.
Ramos maintained with adequate jose UOP. Complete bedrest b/c still lined. Assist x1 to turn/reposition. R lateral chest incision is approximated with surgical adhesive and open to air. R medial axilla puncture sites x3 are approximated with
surgical adhesive and open to air (one has a dressing which is clean, dry, intact). R groin incisions x2 are approximated with surgical adhesive and open to air. Will continue to monitor.
[2023-08-06 07:47] LABS: Glucose - Point of Care 111 mg/dl (70-99)
--- NOTE | 2023-08-06 07:52 | W.PN.ANS.POP ---
Anesthesia Post Operative
- Anesthesia Post Op Note
Vital Signs Stable-See Nursing Note: Yes
Airway Patent: Yes
Adequate Pain Control: Yes
Change in Mental Status: No
Current Postoperative Nausea & Vomiting: No
Anesthesia Complications: No
General Anesthetic Recall: No
Unplanned Admission: No
Post Op Hydration Adequate: Yes
[2023-08-06] MEDS: TORADOL 15 MG IV ×2 (08:16→18:52)
[2023-08-06] MEDS: SENOKOT-S 1 TABLET PO ×2 (08:17→22:16)
[2023-08-06] MEDS: NEURONTIN 200 MG PO ×3 (08:17→22:17)
[2023-08-06] MEDS: PROTONIX 40 MG PO (08:17)
[2023-08-06] MEDS: BACTROBAN 2% OINTMENT 1 APPLIC NASAL ×2 (08:17→22:19)
[2023-08-06] MEDS: LOW STRENGTH ASPIRIN 81 MG PO (08:17)
[2023-08-06] MEDS: LIDOCAINE 4% PATCH 1 PATCH TOPICAL (08:17)
[2023-08-06 10:08] LABS: Glucose - Point of Care 111 mg/dl (70-99)
[2023-08-06] MEDS: NOVOLOG FLEXPEN 4 UNITS SC ×2 (10:09→17:52)
[2023-08-06] MEDS: LASIX 20 MG IV (11:27)
--- NOTE | 2023-08-06 11:36 | PTCARENOTE ---
De-lined patient per order and per protocol. Patient tolerated. New dressing applied to RIJ cordis. New dressing applied to R radial a-line site. Patient c/o 10/10 R thoracotomy pain, administered PRN Dilaudid as ordered. Will continue to monitor.
[2023-08-06 12:39] LABS: Glucose - Point of Care 121 mg/dl (70-99)
--- NOTE | 2023-08-06 12:42 | PTCARENOTE ---
Vital signs stable. SB. HR 40s-50s. V wire maintained to pacer box. BP 123/64. 6L NC maintained. Oxygen saturation 90%. Patient assisted OOB for the first time with 2 assist into the chair. Patient tolerated but had pain - administered PRN Flexeril
as ordered. He also had trouble catching his breath. Mixed venous ordered and drawn. IS 750 - educated patient on utilizing it 10 times/hr. Will continue to monitor.
[2023-08-06] MEDS: FLEXERIL 5 MG PO ×2 (12:52→22:18)
[2023-08-06] MEDS: NOVOLOG FLEXPEN SC (12:53)
[2023-08-06 13:30] LABS: Mixed Venous O2 Saturation 56.5 %
[2023-08-06 13:54] LABS: Glucose - Point of Care 123 mg/dl (70-99)
--- NOTE | 2023-08-06 14:52 | CM ---
Chart reviewed. Patient's was at bedside. Patient is independent of ADLS, lives with his in a 2 STH, 12 SAROJ, 0 DME. Plan is for the patient to return home with CT Transitional RN. CM to follow
[2023-08-06 14:58] LABS: ACT+ - POC > 1003 Seconds (82-134)
--- NOTE | 2023-08-06 15:42 | CON.INTV ---
Consultation
Consultation Request
Date/Time Consultation Requested: 08/06/2023
Date/Time Consultation Performed: 08/06/2023
Requesting Provider: Dr. Lopez
Performing Provider: Dr. Yannick Lock
Reason for Consultation: Status post mitral valve repair-postoperative ICU care
Medical History
-
History of Present Illness:
52-year-old man who was transferred from [facility] for surgical evaluation of severe mitral regurgitation and possible mitral vegetation on 07/29/2023. He was initially treated with a left wrist cellulitis with antibiotics.
Echocardiogram apparently reported large mitral valve possible vegetation. Cultures were negative, low suspicion for endocarditis. He was deemed candidate for surgical intervention.
Underwent mitral valve repair on 08/05/2023.
Currently extubated, sitting out of bed. States that the pain is there. Unable to take a deep breath.
On low rate supplemental oxygen with a pulse ox of 89%. Denies any cough or wheezing per
He feels tired.
Was able to tolerate low pressure BiPAP for hypoxemia.
Does not appear in distress.
Past Medical History
Past Medical History: Other (See assessment and plan section)
Social History
Tobacco: Smoker
Family History
Family History: Reviewed & Not Pertinent
Allergies / Home Medications
Allergies
Allergy/AdvReac Type Severity Reaction Status Date / Time
No Known Allergies Allergy Unverified 07/30/23 21:05
Home Medications
�Medication �Instructions �Recorded �Confirmed �Last Taken �Type
No Meds [No Current Medications] 08/01/23 08/01/23 Unknown History
Review of Systems
-
History Source: Patient
All other systems: Negative unless noted
Vitals / Labs / Diagnostic Testing
Vital Signs
Temp Pulse Resp BP Pulse Ox
98.1 F 68 20 123/69 90
08/06/23 11:00 08/06/23 15:00 08/06/23 15:00 08/06/23 15:00 08/06/23 15:00
Lab Data
08/06/23 04:00
08/06/23 04:00
Laboratory Results
08/05/23 08/05/23 08/05/23
17:38 19:05 20:02
PT 16.4 H
INR 1.34
APTT 29.2
pH 7.28 L 7.32 L 7.38
pCO2 53 H 46 46
pO2 130 H 73 L 73 L
HCO3 24.9 23.7 27.2
O2 Delivery Level
Microbiology
08/01/23 03:37 Blood/Venous Blood Culture - Final
No Growth - Final Report
07/31/23 06:01 Blood/Venous Blood Culture - Final
No Growth - Final Report
07/31/23 05:24 Blood/Venous Blood Culture - Final
No Growth - Final Report
Diagnostic Testing:
Physical Exam
-
HEENT: Normocephalic
Cardiovascular: S1/S2
Respiratory: Clear, Non-Labored Respirations and Other (Chest tube in place without air leak.)
GI: Soft and Non Distended
Neurology: Awake, Alert and Oriented
General: Respiratory Distress (n)
Assessment
-
s/p mitral valve repair #30mm annuloplasty band, reapproximation of clefts @ P1/P2, P2/P3, A1/A2, and A2/A3. CV4 Gor-Zoran chords to P2 scallop and single CV4 Gor-Zoran suture to A2 scallop. Left atrial appendage #35mm clip for frequent PACs
Postoperative mild hypoxemia-likely due to subsegmental atelectasis.
Postoperative anemia
Conditions present prior admission:
Hypertension
GERD
Tobacco abuse
Assessment and plan:
Postoperative day 1
Patient doing relatively well.
Still with some discomfort on incision: Continue with analgesia per protocol
Mild hypoxemia requiring supplemental oxygen: Likely due to subsegmental atelectasis and pain.
Incentive spirometry encouraged
Okay to use as needed's CPAP while asleep.
Out of bed as able
-
Hemodynamically: On low-dose dobutamine.
Diuresis when able
Renal function is normal
-
Chest tube in place: No air leak. No excessive drainage
Chest x-ray reviewed, without collections or pneumothorax. Subsegmental atelectasis in both bases.
-
Advance diet as tolerated
Aspiration precaution
Glycemic control per protocol
-
Increase physical activity as able/physical therapy per protocol
-
Smoking cessation encouraged.
--- NOTE | 2023-08-06 16:06 | PTCARENOTE ---
RP CT discontinued per order and per policy. Patient tolerated, but was very anxious during the removal - 2 RNs in room. Patient's HR went up to the 90s and patient in bigeminy. Patient tolerated CT removal. New dressing applied. Asked patient if he
would consider an anxiolytic for his situation anxiety and nicotine withdrawal - CV DIGESTER COOK asked. Will continue to monitor.
[2023-08-06 16:17] LABS: Glucose - Point of Care 192 mg/dl (70-99)
[2023-08-06] MEDS: LASIX 40 MG IV (17:22)
[2023-08-06] MEDS: LIPITOR 40 MG PO (17:22)
[2023-08-06] MEDS: KCL 20 MEQ PO (17:22)
[2023-08-06] MEDS: ROXICODONE 5 MG PO ×2 (17:22→22:17)
[2023-08-06] MEDS: NSS IV (17:23)
[2023-08-06 17:32] LABS: Glucose - Point of Care 161 mg/dl (70-99)
--- NOTE | 2023-08-06 19:00 | PTCARENOTE ---
assumed care of patient @ 1900. received pt lying in bed, AOX3. VSS on 6L NC. Pt c/o severe pain, toradol given. NSR on monitor, +Pulses trace edema. V wire set to 35,10,1. 6L satting low 90s. IS around 500, reinforced need to continue to use IS.
Mediastinal chest tube with serosang drainage. +BS, +flatus. kendall present draining clear yellow urine. All surgical sites CDI. R IJ cordis patent. dobut on 1 mcg. Insulin GTT d/cd. call pavon within reach
[2023-08-06 19:17] LABS: Glucose - Point of Care 91 mg/dl (70-99)
[2023-08-06 22:24] LABS: Glucose - Point of Care 126 mg/dl (70-99)
--- NOTE | 2023-08-06 23:28 | PTCARENOTE ---
pt resting comfortably, is a mouth breather at baseline - NC converted to venti mask by RT at 15L 50 %. Nicotine patch requested by patient and ordered by PA. no other change in assessment
[2023-08-07] VITALS (13 sets, daily range): BP systolic 111–143; BP diastolic 69–86; PULSE 118; O2SAT 92–95; BMI 31.0
[2023-08-07] MEDS: ROXICODONE 5 MG PO ×3 (03:01→18:35)
[2023-08-07] MEDS: NICODERM TRANSDERMAL 21 MG TRANSDERM (03:20)
--- NOTE | 2023-08-07 03:20 | PTCARENOTE ---
nicotine patch placed on R upper arm
[2023-08-07 03:29] LABS: Hematocrit 33.7 % (39.0-52.0); Hemoglobin 11.8 g/dL (13.0-18.0); Mean Corpuscular Hgb 29.4 pg (27.0-31.0); Mean Platelet Volume 11.3 fL (7.4-10.4); Platelet Count 113 10^3/uL (130-400); Red Blood Cell Count 4.01 10^6/uL (4.70-6.10); Red Cell Dist. Width 13.3 % (11.5-14.5); White Blood Cell Count 16.7 10^3/uL (4.8-10.8)
--- NOTE | 2023-08-07 03:56 | PTCARENOTE ---
labs drawn and sent, pt back to 6LNC - venti mask making him anxious. 5 of ailyn given for pain. no change in assessment.
[2023-08-07 04:01] LABS: Blood Urea Nitrogen 30 mg/dl (9-20); Calcium 8.3 mg/dl (8.4-10.2); Carbon Dioxide 24 mmol/L (22-30); Chloride 102 mmol/L (98-107); Estimated Creatinine Clearance 92 ml/min; Glucose 125 mg/dl (70-99); Magnesium 2.2 mg/dl (1.6-2.3); Sodium 131 mmol/L (135-145); eGFR > 60.00
--- NOTE | 2023-08-07 05:45 | PTCARENOTE ---
0545 - pt converted to afib HR 150s 160s - asymptomatic. 2.5 lopressor given followed by additional 5. CTPA reccomended pt to stay in bed d/t variable HR. emotional support and education provided.
[2023-08-07] MEDS: TYLENOL 1000 MG PO ×2 (06:04→22:21)
[2023-08-07] MEDS: LOPRESSOR 2.5 MG IV (06:04)
[2023-08-07] MEDS: LOPRESSOR 5 MG IV (06:20)
--- NOTE | 2023-08-07 06:38 | W.PN.CT ---
Today's Communication / Plan
-
Plan:
-No major issues overnight. Hemodynamically and neurologically intact
-Pt went into SVT then A-fib with RVR (160's) @ 0545 this AM 08/07/23
-Dobutamine gtt was infusing @ 1 mcg/kg/min before a-fib. D/C'd dobutamine gtt and gave 2.5, then 5 mg IV Lopressor, Amiodarone bolus to follow
-Cont. current meds (ASA, Lipitor, Amiodarone, Lopressor)
-Monitor chest tube output for possible d/c: Med 130/210. R pleural was d/c'd yesterday
-D/C kendall
-Maintain cordis another day
-Maintain temporary pacer wires (will cut before d/c home)
-Encourage use of IS
-Wean off of O2 as tolerated, currently requiring 6L on Nasal Cannula, O2 sats 94%
-Cont. to encourage smoking cessation, started nicotine patch
-OOB into chair/Ambulate
Assessment / Plan
-
Assessment:
-S/P Right mini thoracotomy with right common femoral artery and vein cannulation under [facility] guidance/Radical mitral valve repair (30 mm annuloplasty band, reapproximation of clefts at P1/P2 and P2/P3 and A1/A2 and A2/A3, CV 4 [place]-Zoran cords placed
to P2 scallop and a single CV 4 [place]-Zoran suture to A2 scallop)/Left atrial appendage exclusion with a 35 mm clip, by Dr. Lopez, 08/05/23, pod#2
-Severe MR/degeneration of the mitral valve with significant flail and prolapse of P2 scallop, type II mitral valve disease
-Dilated Asc. Aorta (3.5 cm)
-LVEF 55% per intraop [facility]ST
-L hand cellulitis/b/l wrist lesions - improved, s/p Tdap at [facility]
-Chest CT at [facility]: no PE
-HTN/HLD
-Frequent PAC's/PVCs
-elevated HS-trops without ischemia
-Cath 07/30/23: non-obstructive CAD
-Current smoker 1-1.5 ppd for 30 yrs
-Hx alcohol, quit 2 years ago
-Hx GERD
-Hx L inguinal hernia repair
-Hx R knee surgery
-Acute postop blood loss/Anemia (stable without transfusion)
-Acute postop thrombocytopenia (stable without active bleed)
-Acute postop atelectasis
-Acute postop hypovolemia with subsequent hypervolemia
-Acute postop SVT and A-fib with RVR
-Acute postop pulmonary insufficiency
Discussed patient care with: Cardiology, Nursing, Respiratory Therapy, Pharmacy and Care Team
Subjective
Procedure
S/P Right mini thoracotomy with right common femoral artery and vein cannulation under [facility] guidance/Radical mitral valve repair (30 mm annuloplasty band, reapproximation of clefts at P1/P2 and P2/P3 and A1/A2 and A2/A3, CV 4 [place]-Zoran cords placed to
P2 scallop and a single CV 4 [place]-Zoran suture to A2 scallop)/Left atrial appendage exclusion with a 35 mm clip, by Dr. Lopez, 08/05/23, pod#1
-
Date of Service: August 07, 2023
Pt c/o pleuritic chest pain, otherwise feels well
Objective Data
-
Lab Results
08/07/23 03:12
08/07/23 03:12
PT 16.4 Sec (11.4-14.6) H 08/05/23 17:38
INR 1.34 08/05/23 17:38
APTT 29.2 Sec (23.4-35.0) 08/05/23 17:38
Vital Signs
Vital Signs
Temp Pulse Resp BP Pulse Ox
98.6 F 85 18 128/72 94
08/07/23 03:00 08/07/23 03:00 08/07/23 03:00 08/07/23 00:00 08/07/23 03:00
CT Intake/Output/Weight
08/06/23 08/06/23 08/07/23
06:59 18:59 06:59
Intake Total 1076.0 / 1400.6 1715.7 / 1834.1 118.4 / 1834.1
Output Total 845 / 1070 1105 / 2045 940 / 2044
Balance 231.0 / 330.6 610.7 / -210.9 -821.6 / -210.9
SaO2: 94 (6L)
Physical Exam
-
General: Awake, Oriented and AOx3
Cardiovascular: Regular rate & rhythm, No Murmurs, No Rub and No Gallop
Respiratory: Decreased Breath Sounds
Sternum: Stable
Incision: Clean, Dry, Intact and Dressing Intact
Extremities: No Edema
Data Reviewed
-
Lab Results: Results Reviewed
Medications: Active Meds Reviewed
Chest X-Ray: Report Reviewed and Image Reviewed
ECG: Report Reviewed and Image Reviewed
--- NOTE | 2023-08-07 07:30 | PTCARENOTE ---
Assumed care of patient from manager night RN. AAO x 3 , states having some anxiety this morning with new Afib. Emotional support provided. A fib on monitor. 110's. Epicardial wires to back up of VVI . No pacing noted at present. 6L NC
with pulse ox of 94%. IS to 750. Chest tube x 1 to - 20 cm suction. No air leak or crepitus noted. Abdomen soft and non tender. Ramos draining clear yellow urine. Surgical sites d,d,i. Pulses palpable. Trace edema appreciated. Plan for day
discussed.
[2023-08-07] MEDS: BACTROBAN 2% OINTMENT 1 APPLIC NASAL ×2 (08:16→20:01)
[2023-08-07] MEDS: NOVOLOG FLEXPEN-LOW RESISTANCE SC ×2 (08:16→17:54)
[2023-08-07] MEDS: CORDARONE 103 MG IV ×2 (08:16→13:01)
[2023-08-07] MEDS: LIDOCAINE 4% PATCH 1 PATCH TOPICAL (08:30)
[2023-08-07] MEDS: LOW STRENGTH ASPIRIN 81 MG PO (08:30)
[2023-08-07] MEDS: KLOR-CON 20 MEQ PO ×2 (08:31→20:01)
[2023-08-07] MEDS: PROTONIX 40 MG PO (08:31)
[2023-08-07] MEDS: SENOKOT-S 1 TABLET PO ×2 (08:31→20:01)
[2023-08-07] MEDS: MAGNESIUM OXIDE 500 MG PO ×2 (08:31→19:57)
[2023-08-07] MEDS: NEURONTIN 200 MG PO ×3 (08:31→22:21)
[2023-08-07] MEDS: DILAUDID 0.5 MG IV (08:32)
[2023-08-07] MEDS: LASIX 40 MG IV ×2 (08:36→16:02)
[2023-08-07] MEDS: FLEXERIL 5 MG PO ×2 (08:36→22:20)
--- NOTE | 2023-08-07 10:11 | CM ---
Chart reviewed. Patient lives with his in a 2 STH, 12 SAROJ, 0 DME. Plan is for the patient to return home with CT Transitional RN. CM to follow
[2023-08-07 11:41] LABS: Glucose - Point of Care 199 mg/dl (70-99)
--- NOTE | 2023-08-07 12:00 | PTCARENOTE ---
Pt tolerated chest tube removal. Ramos cath also removed. Pt able to void spontaneously. Pain well managed. Oxygen lowered to 5 L. OOB to chair x 3 hours. Assessment unchanged from prior. VSS
[2023-08-07] MEDS: NOVOLOG FLEXPEN-LOW RESISTANCE 1 UNITS SC (12:27)
[2023-08-07] MEDS: TORADOL 15 MG IV (12:44)
--- NOTE | 2023-08-07 13:00 | PTCARENOTE ---
Amio bolus administered for continued Afib. Tolerated w/o issue.
[2023-08-07] MEDS: TYLENOL PO (13:36)
--- NOTE | 2023-08-07 14:09 | W.PN.CD ---
Today's Communication / Plan
-
Continue diuresis.
Pain control.
Incentive spirometry and ambulation.
Impression / Plan
-
Impression/Plan: 52 y/o male transferred from [facility] with new severe primary mitral regurgitation, initially concerning for infectious endocarditis, now s/p MV repair and left atrial appendage ligation.
#Mitral regurgitation, severe
-Mechanism appears to be flail leaflet, at P1/P2.
-No evidence of endocarditis. Cultures negative (previous antibiotics) but no sequelae off of antibiotics. Dental exam is negative.
-S/P radical mitral valve repair (#30 Mo Physioflex Band, SN [id number]) with reapproximation of clefts at all major scallop junctures, 4 [place] neochords to P2 and a single neochord to A2 (08/05/2023) by Dr. Lopez.
-S/P prophylactic REESE ligation (#35 Atriclip).
-Pain control.
-Chest tubes removed.
-Furosemide 40 mg IV given last night and again this morning. Monitor response.
#HTN
-New diagnosis.
-Currently normotensive in the immediate post operative setting.
#PVC's:
-Improved with beta maria e.
-Echo with normal LVEF.
-Restart metoprolol when satisfied with surgical recovery.
#Non-obstructive CAD
-Chronic, stable.
-Continue ASA, statin.
#Current smoker:
-Recommended cessation.
-PFT's show normal spirometry.
Subjective/Interval History:
SVT/AF-RVR this morning. Dobutamine discontinued and metoprolol given, followed by amiodarone.
Weight down 1.6 kg but still up 1.1 kg from baseline.
SaO2 92% on 5 LNC.
Na down to 131.
Pain improved after chest tube discontinued.
DATA:
Intraoperative [facility], 08/05/2023:
CONCLUSIONS
Overall LVEF is approximately 55% with no RWMA.
Mild concentric left ventricular hypertrophy.
Mildly dilated left atrium.
Trace tricuspid regurgitation.
Severe mitral regurgitation.
The P2 scallop is quite large and is flailing into the LA (whole scallop) with
associated torn chords.
Mid ascending aorta is mildly dilated measuring 3.5 cm at the level of the RPA.
Mild sessile atheroma seen in the descending aorta and distal arch.
POST OPERATIVE FINDINGS
The patient underwent a MV repair with an (Annuloplasty band and [place]an-chords)
and ligation of the LA appendage. Postop rhythm is now junctional. RV and LV
function are normal. Overall LVEF is still approximately 55% with no new RWMA.
No significant MR noted. Mild chordal RANDALL noted. Max MV gradient measures 4
mmHg, mean is 1 mmHg. Mild TR. Trace PI. AV appears normal. A very small
residual LA appendage lumen is noted. No flow is noted beyond the clip. Aortic
scan is unchanged.
Physical Exam
Vital Signs/Labs
Vital Signs
Temp Pulse Resp BP Pulse Ox
37.1 C 118 18 136/86 92
08/07/23 11:41 08/07/23 12:00 08/07/23 11:41 08/07/23 10:54 08/07/23 13:04
08/06/23 08/07/23 08/08/23
11:59 11:59 11:59
Actual Weight 99.5 kg 97.9 kg
08/07/23 03:12
08/07/23 03:12
PT 16.4 Sec (11.4-14.6) H 08/05/23 17:38
INR 1.34 08/05/23 17:38
APTT 29.2 Sec (23.4-35.0) 08/05/23 17:38
Magnesium 2.2 mg/dl (1.6-2.3) 08/07/23 03:12
Physical Exam
Constitutional: No acute distress and Comfortable
EENT: Anicteric and Moist mucous membranes
Cardiovascular: Rhythm & rate is regular, Pedal edema is absent, JVD pressure is normal, S1S2 is normal and Murmur/rub/gallop absent
Respiratory: Respiratory effort normal, Lungs clear to auscul., Wheeze Absent, Crackles Absent and Rhonchi Absent
GI: Soft, Distention absent, Flat, Non tender and Normal bowel sounds
Neuro/Psych: AO x 3
Data Reviewed
-
Date of Service: August 07, 2023
Medical Decision Making: Reviewed Test Results, Independent Historian Assessment, Test Interpretation and Review of Case with other Provider
EKG: Tracing Personally Visualized and interpreted and Report Reviewed by me
Echo: Report Reviewed by me
X-Ray/CT/US/MRI/NUC/PET: Image Personally Visualized and interpreted and Report Reviewed by me
Medical Tests (PFT, Pathology etc): Report Reviewed by me
Labs: Labs Reviewed by me
--- NOTE | 2023-08-07 15:36 | PTCARENOTE ---
converted to NSR 60's at 1444. Pt states he could feel the conversion, no pausing noted. VSS. Pain management. VSS
--- NOTE | 2023-08-07 15:42 | W.PN.INTV ---
Today's Communication / Plan
Recommendations
Wean off oxygen supplementation
Diuresis
Heart rate control
Increase activity as able
Follow chest tube output
Sign off
Assessment
-
s/p mitral valve repair #30mm annuloplasty band, reapproximation of clefts @ P1/P2, P2/P3, A1/A2, and A2/A3. CV4 Gor-Zoran chords to P2 scallop and single CV4 Gor-Zoran suture to A2 scallop. Left atrial appendage #35mm clip for frequent PACs
Postoperative mild hypoxemia-likely due to subsegmental atelectasis.
Postoperative anemia postop atrial fibrillation with rapid ventricular response
Conditions present prior admission:
Hypertension
GERD
Tobacco abuse
Assessment and plan:
Postoperative day 2
Patient doing relatively well.
Still with some discomfort on incision: Continue with analgesia per protocol
Remains on 6 L supplemental oxygen.
Incentive spirometer
Increase activity as able
On diuresis.
-
Atrial fibrillation with rapid ventricular response. Heart rate improved.
Vasoactive drugs have been discontinued
On Lopressor and amiodarone.
Cardiology and CT surgery managing.
Hemodynamically: On low-dose dobutamine. 08/07/2023
-
Chest tube in place: No air leak. No excessive drainage
Chest x-ray reviewed , without collections or pneumothorax. Subsegmental atelectasis in both bases.
-
Advance diet as tolerated
Aspiration precaution
Glycemic control per protocol
-
Increase physical activity as able/physical therapy per protocol
-
Smoking cessation again encouraged.
-
No additional recommendation from the critical care perspective per
Sign off
Subjective Dataa
Subjective Data
Date of Service:
Date of Service: August 07, 2023
Chief Complaint: Manager Heavy Duty Follow Up (Status post mitral valve repair)
Subjective:
Patient denies any particular complaints
No major events overnight
Developed atrial fibrillation with rapid ventricular response earlier in the morning.
Denies palpitations or lightheadedness
Review of Systems
General: Fever (n)
Cardiopulmonary: Dyspnea (None at rest), Cough (n) and Chest Pain (n)
GI: Abdominal Pain (n) and Nausea (n)
Objective Data
Data Reviewed
Vital Signs / I&O / Oxygen:
Vital Signs
Temp Pulse Resp BP Pulse Ox
98.7 F 118 18 136/86 92
08/07/23 11:41 08/07/23 12:00 08/07/23 11:41 08/07/23 10:54 08/07/23 13:04
Intake and Output
08/06/23 08/07/23 08/08/23
06:59 06:59 06:59
Intake Total 1320.4 / 1400.6 1834.1 / 1834.1 750 / 750
Output Total 1015 / 1070 2045 / 2045 435 / 435
Balance 305.4 / 330.6 -210.9 / -210.9 315 / 315
SaO2 [CPAP] 95
SaO2 [SIMV] 100
SaO2 92
Nasal Cannula flow liters per 5
minute
Physical Exam
General: Respiratory Distress (n) and Comfortable
HEENT: Normocephalic
Cardiovascular: Irregular Rhythm
Respiratory: Clear, Non-Labored Respirations and Chest Tube (No air leak or excessive drainage.)
GI: Soft and Non Distended
Neurology: Awake, Alert and No Motor Deficits
Labs/Micro/Reports
Lab Data
08/07/23 03:12
08/07/23 03:12
Microbiology
08/01/23 03:37 Blood/Venous Blood Culture - Final
No Growth - Final Report
07/31/23 06:01 Blood/Venous Blood Culture - Final
No Growth - Final Report
07/31/23 05:24 Blood/Venous Blood Culture - Final
No Growth - Final Report
[2023-08-07] MEDS: NSS 500 IV (16:02)
[2023-08-07] MEDS: MUCINEX 600 MG PO (17:54)
[2023-08-07] MEDS: LIPITOR 40 MG PO (17:54)
--- NOTE | 2023-08-07 17:55 | PTCARENOTE ---
Nicotine patch removed at pt request. Nicotine gum discussed with CT AUTOMATIC GLUING MACHINE OPERATOR
[2023-08-07] MEDS: LOPRESSOR 12.5 MG PO (19:57)
[2023-08-07] MEDS: PACERONE 200 MG PO (20:00)
--- NOTE | 2023-08-07 20:00 | PTCARENOTE ---
assumed care of patient @ 1900. received pt sitting in chair, AOX3. NSR on monitor, +PP trace edema. V wire set to 35, 10, 1. Lungs clear, diminished on 4L 02 satting mid 90s. IS around 1000. Belly soft, nontender. voiding adequate amounts in
urinal. All surgical incisions CDI. Cordis and PIV patent. assited pt back to bed, resting comfortably with call pavon within reach.
[2023-08-08] VITALS (9 sets, daily range): BP systolic 116–151; BP diastolic 69–76; PULSE 69; O2SAT 90–92; BMI 31.3
--- NOTE | 2023-08-08 | PTCARENOTE ---
pt resting comfortably, no change in assessment.
--- NOTE | 2023-08-08 03:01 | W.PN.CT ---
Today's Communication / Plan
-
-pod #3
-no significant issues overnight, remains in nsr 60s
-appears SOB with rales at bases. pOx 86% on 4L and 96% on 6L
-diuresed well with 40 iv bid Lasix on 4/3 (UO 600/1660 in 12/24 hrs)- continue Lasix
-labs pending
-BB and Amio restarted for paf
-continue current meds
-encourage IS (1000 so far), OOB, ambulate
Assessment / Plan
-
Assessment:
-S/P Right mini thoracotomy with right common femoral artery and vein cannulation under [facility] guidance/Radical mitral valve repair (30 mm annuloplasty band, reapproximation of clefts at P1/P2 and P2/P3 and A1/A2 and A2/A3, CV 4 [place]-Zoran cords placed
to P2 scallop and a single CV 4 [place]-Zoran suture to A2 scallop)/Left atrial appendage exclusion with a 35 mm clip, by Dr. Lopez, 08/05/23, pod#3
-Severe MR/degeneration of the mitral valve with significant flail and prolapse of P2 scallop, type II mitral valve disease
-Dilated Asc. Aorta (3.5 cm)
-LVEF 55% per intraop [facility]
-L hand cellulitis/b/l wrist lesions - improved, s/p Tdap at [facility]
-Chest CT at [facility]: no PE
-HTN/HLD
-Frequent PAC's/PVCs
-elevated HS-trops without ischemia
-Cath 07/30/23: non-obstructive CAD
-Current smoker 1-1.5 ppd for 30 yrs
-Hx alcohol, quit 2 years ago
-Hx GERD
-Hx L inguinal hernia repair
-Hx R knee surgery
-Acute postop blood loss/Anemia (stable without transfusion)
-Acute postop thrombocytopenia (stable without active bleed)
-Acute postop atelectasis
-Acute postop hypovolemia with subsequent hypervolemia
-Acute postop SVT and A-fib with RVR
-Acute postop pulmonary insufficiency
-Acute postop hyponatremia
Discussed patient care with: Nursing and Care Team
Subjective
Procedure
S/P Right mini thoracotomy with right common femoral artery and vein cannulation under [facility] guidance/Radical mitral valve repair (30 mm annuloplasty band, reapproximation of clefts at P1/P2 and P2/P3 and A1/A2 and A2/A3, CV 4 [place]-Zoran cords placed to
P2 scallop and a single CV 4 [place]-Zoran suture to A2 scallop)/Left atrial appendage exclusion with a 35 mm clip, by Dr. Lopez, 08/05/23, pod#1
-
Date of Service: August 08, 2023
Objective Data
-
PT 16.4 Sec (11.4-14.6) H 08/05/23 17:38
INR 1.34 08/05/23 17:38
APTT 29.2 Sec (23.4-35.0) 08/05/23 17:38
Vital Signs
Vital Signs
Temp Pulse Resp BP Pulse Ox
97.7 F 58 16 140/76 96
08/08/23 00:00 08/08/23 01:00 08/08/23 00:00 08/07/23 22:28 08/08/23 01:00
CT Intake/Output/Weight
08/07/23 08/07/23 08/08/23
06:59 18:59 06:59
Intake Total 118.4 / 1834.1 910 / 1470 560 / 1470
Output Total 94 / 5 1085 / 1685 600 / 1685
Balance -821.6 / -210.9 -175 / -215 -40 / -215
SaO2: 96
Physical Exam
-
General: Awake and AOx3
Cardiovascular: Regular rate & rhythm, No Murmurs and No Rub
Respiratory: Rales (at bases b/l) and Decreased Breath Sounds
Sternum: Stable
Incision: Clean, Dry and Intact
Extremities: Edema +1
Abdomen: soft, nondistended, + bowel sounds
Data Reviewed
-
Lab Results: Results Reviewed
Medications: Active Meds Reviewed
Chest X-Ray: Report Reviewed and Image Reviewed
ECG: Report Reviewed and Image Reviewed
[2023-08-08 04:31] LABS: Hemoglobin 10.6 g/dL (13.0-18.0); Mean Corp Hgb Conc. 35.3 g/dL (33.0-37.0); Mean Corpuscular Hgb 29.7 pg (27.0-31.0); Red Blood Cell Count 3.57 10^6/uL (4.70-6.10); Red Cell Dist. Width 13.1 % (11.5-14.5); White Blood Cell Count 13.2 10^3/uL (4.8-10.8)
[2023-08-08 04:45] LABS: Blood Urea Nitrogen 30 mg/dl (9-20); Calcium 7.8 mg/dl (8.4-10.2); Carbon Dioxide 30 mmol/L (22-30); Chloride 98 mmol/L (98-107); Estimated Creatinine Clearance 100 ml/min; Glucose 113 mg/dl (70-99); Magnesium 2.4 mg/dl (1.6-2.3); Potassium 3.9 mmol/L (3.5-5.1); Sodium 131 mmol/L (135-145); eGFR > 60.00
[2023-08-08 06:23] LABS: Mean Platelet Volume 11.2 fL (7.4-10.4); Platelet Count 89 10^3/uL (130-400)
[2023-08-08] MEDS: TORADOL 15 MG IV ×3 (06:26→22:02)
[2023-08-08] MEDS: TYLENOL 1000 MG PO ×2 (06:26→22:10)
--- NOTE | 2023-08-08 07:30 | PTCARENOTE ---
Assumed care of pt from rn shift mgr RN. AAO x 3 pain better but continues. SR on monitor, occasional PVC's. Epicardial wire to back up VVI. No pacing noted at present. 2 L NC 90%. IS to 1500. Hyperactive bowel sounds. Pt states 2 BM's this
am. Voiding independently. Surgical sites c,d,i. Pulses palpable. Plan for day discussed.
--- NOTE | 2023-08-08 07:32 | W.PN.CD ---
Today's Communication / Plan
-
Increase furosemide to 80 mg IV this morning.
Possible redose this afternoon depending on response.
Monitor platelet count.
Impression / Plan
-
Impression/Plan: 52 y/o male transferred from [facility] with new severe primary mitral regurgitation, initially concerning for infectious endocarditis, now s/p MV repair and left atrial appendage ligation.
#Mitral regurgitation, severe
-Mechanism appears to be flail leaflet, at P1/P2.
-No evidence of endocarditis. Cultures negative (previous antibiotics) but no sequelae off of antibiotics. Dental exam is negative.
-S/P radical mitral valve repair (#30 Mo Physioflex Band, SN [id number]) with reapproximation of clefts at all major scallop junctures, 4 Goretex neochords to P2 and a single neochord to A2 (08/05/2023) by Dr. Lopez.
-S/P prophylactic REESE ligation (#35 Atriclip).
-Pain control.
-Chest tubes removed.
-Increase furosemide to 80 mg IV this morning, redose in afternoon depending on response.
#HTN
-New diagnosis.
-Currently normotensive in the immediate post operative setting.
#PVC's:
-Improved with beta maria e.
-Echo with normal LVEF.
-Restart metoprolol when satisfied with surgical recovery.
#Non-obstructive CAD
-Chronic, stable.
-Continue ASA, statin.
#Current smoker:
-Recommended cessation.
-PFT's show normal spirometry.
Subjective/Interval History:
Remains hypoxic.
Weight up 1.2 kg from yesterday, down from 08/06/2023.
No further AF.
Remains 94% on 5LNC.
Chest tubes removed.
Platelets down to 89.
DATA:
Intraoperative CHRIST, 08/05/2023:
CONCLUSIONS
Overall LVEF is approximately 55% with no RWMA.
Mild concentric left ventricular hypertrophy.
Mildly dilated left atrium.
Trace tricuspid regurgitation.
Severe mitral regurgitation.
The P2 scallop is quite large and is flailing into the LA (whole scallop) with
associated torn chords.
Mid ascending aorta is mildly dilated measuring 3.5 cm at the level of the RPA.
Mild sessile atheroma seen in the descending aorta and distal arch.
POST OPERATIVE FINDINGS
The patient underwent a MV repair with an (Annuloplasty band and Dequan-chords)
and ligation of the LA appendage. Postop rhythm is now junctional. RV and LV
function are normal. Overall LVEF is still approximately 55% with no new RWMA.
No significant MR noted. Mild chordal RANDALL noted. Max MV gradient measures 4
mmHg, mean is 1 mmHg. Mild TR. Trace PI. AV appears normal. A very small
residual LA appendage lumen is noted. No flow is noted beyond the clip. Aortic
scan is unchanged.
Physical Exam
Vital Signs/Labs
Vital Signs
Temp Pulse Resp BP Pulse Ox
36.6 C 64 16 127/69 94
08/08/23 04:00 08/08/23 04:09 08/08/23 04:00 08/08/23 04:09 08/08/23 04:09
08/06/23 08/07/23 08/08/23
11:59 11:59 11:59
Actual Weight 99.5 kg 97.9 kg 99.1 kg
08/08/23 04:10
08/08/23 04:10
PT 16.4 Sec (11.4-14.6) H 08/05/23 17:38
INR 1.34 08/05/23 17:38
APTT 29.2 Sec (23.4-35.0) 08/05/23 17:38
Magnesium 2.4 mg/dl (1.6-2.3) H 08/08/23 04:10
Physical Exam
Constitutional: No acute distress and Comfortable
EENT: Anicteric and Moist mucous membranes
Cardiovascular: Rhythm & rate is regular, Pedal edema is absent, JVD pressure is normal, S1S2 is normal and Murmur/rub/gallop absent
Respiratory: Respiratory effort normal and Crackles Present (Bilateral bases.)
GI: Soft, Distention absent, Flat, Non tender and Normal bowel sounds
Neuro/Psych: AO x 3
Data Reviewed
-
Date of Service: August 08, 2023
Medical Decision Making: Reviewed Test Results, Independent Historian Assessment, Test Interpretation and Review of Case with other Provider
EKG: Tracing Personally Visualized and interpreted and Report Reviewed by me
Echo: Report Reviewed by me
X-Ray/CT/US/MRI/NUC/PET: Image Personally Visualized and interpreted and Report Reviewed by me
Medical Tests (PFT, Pathology etc): Report Reviewed by me
Labs: Labs Reviewed by me
[2023-08-08] MEDS: NOVOLOG FLEXPEN-LOW RESISTANCE SC ×3 (08:32→15:50)
[2023-08-08] MEDS: NEURONTIN 200 MG PO ×3 (08:33→22:09)
[2023-08-08] MEDS: MAGNESIUM OXIDE 500 MG PO ×2 (08:33→20:17)
[2023-08-08] MEDS: BACTROBAN 2% OINTMENT 1 APPLIC NASAL ×2 (08:33→20:17)
[2023-08-08] MEDS: PROTONIX 40 MG PO (08:33)
[2023-08-08] MEDS: MUCINEX 600 MG PO ×2 (08:33→20:19)
[2023-08-08] MEDS: LIDOCAINE 4% PATCH 1 PATCH TOPICAL (08:34)
[2023-08-08] MEDS: LOPRESSOR 12.5 MG PO ×2 (08:34→09:00)
[2023-08-08] MEDS: PACERONE 200 MG PO ×2 (08:34→20:19)
[2023-08-08] MEDS: LOW STRENGTH ASPIRIN 81 MG PO (08:34)
[2023-08-08] MEDS: KLOR-CON 20 MEQ PO (08:41)
[2023-08-08] MEDS: FLEXERIL 5 MG PO ×3 (08:41→22:10)
[2023-08-08] MEDS: ROXICODONE 5 MG PO ×3 (08:41→16:47)
[2023-08-08] MEDS: SENOKOT-S PO ×2 (08:42→20:19)
[2023-08-08] MEDS: LASIX 60 MG IV (09:00)
[2023-08-08] MEDS: KCL 20 MEQ PO ×2 (09:00→20:17)
[2023-08-08] MEDS: LASIX IV (10:51)
--- NOTE | 2023-08-08 12:38 | CM ---
Chart reviewed. Patient OOB in the chair. Patient is independent of ADLS, lives with his in a 2 STH, 12 SAROJ, 0 DME. Plan is for the patient to return home. CM to follow
--- NOTE | 2023-08-08 12:47 | PTCARENOTE ---
Ambulating in room. Pain well managed with torodol/oxycodone. Voiding in bathroom. VSS. Assessment otherwise unchanged from prior.
[2023-08-08] MEDS: TYLENOL PO (14:51)
[2023-08-08] MEDS: NSS IV (15:51)
[2023-08-08] MEDS: LIPITOR 40 MG PO (15:57)
--- NOTE | 2023-08-08 16:16 | PTCARENOTE ---
Ambulated entire loop w/o issue. Some STOLL noted, pulse ox 93% . IS to 1500. Pain well managed. VSS Assessment unchanged from prior.
[2023-08-08] MEDS: LOPRESSOR 25 MG PO (20:17)
--- NOTE | 2023-08-08 23:20 | PTCARENOTE ---
Assumed care of patient at 1900. Patient found OOB in chair at time of assessment. Patient is AOx4, follows commands appropriately, moves all extremities. Patient is able to ambulate independently. Lung sounds have fine crackles in the bases,
patient is on RA saO2 at 94%. Heart sounds have a regular rate and rhythm. Patient is SR with PVCs on the monitor. Patient has V wires connected to temporary PM with settings of 30/5/1. There are normal palpable pulses and trace BLE edema is noted.
Patient has active BS throughout all four quadrants of soft round obese abdomen. Patient reports diarrhea in AM will hold senna. Patient has a large R chest incision approx with surg adhesive sutures present ANITHA. There is a R groin incision approx
with surg adhesive ANITHA. Patient has a L hand PIV available for intermittent infusion. VSS. Patient is stable.
[2023-08-09] VITALS (7 sets, daily range): BP systolic 117–142; BP diastolic 70–82; PULSE 79; O2SAT 93–94; BMI 31.5
--- NOTE | 2023-08-09 00:30 | PTCARENOTE ---
Patient reassessed. VSS. Remains SR with PVCs on the monitor. Patient received toradolx1 for 02/12 pain 2/2 heart port incision. Upon reassessment patient asleep. Stable at this time.
--- NOTE | 2023-08-09 00:32 | W.PN.CT ---
Today's Communication / Plan
-
POD #4
- No significant issues overnight, remains in nsr 60s
-Appears SOB with fine crackles at bases. pOx 92% on room air
-Diuresed well with 60mg iv Lasix on 08/06 (UO in 12/24 hrs)- continue Lasix
- Labs pending
- Follow up TTE completed on 08/07
- Continue BB and Amio
- Continue current meds
- Encourage IS (1000 so far), OOB, ambulate
- Possible Discharge later today
Assessment / Plan
-
Assessment:
-S/P Right mini thoracotomy with right common femoral artery and vein cannulation under CHRIST guidance/Radical mitral valve repair (30 mm annuloplasty band, reapproximation of clefts at P1/P2 and P2/P3 and A1/A2 and A2/A3, CV 4 [place]-Zoran cords placed
to P2 scallop and a single CV 4 Wisner-Zoran suture to A2 scallop)/Left atrial appendage exclusion with a 35 mm clip, by Dr. Lopez, 08/05/23, pod#3
-Severe MR/degeneration of the mitral valve with significant flail and prolapse of P2 scallop, type II mitral valve disease
-Dilated Asc. Aorta (3.5 cm)
-LVEF 55% per intraop CHRIST
-L hand cellulitis/b/l wrist lesions - improved, s/p Tdap at [facility]
-Chest CT at [facility]: no PE
-HTN/HLD
-Frequent PAC's/PVCs
-elevated HS-trops without ischemia
-Cath 07/30/23: non-obstructive CAD
-Current smoker 1-1.5 ppd for 30 yrs
-Hx alcohol, quit 2 years ago
-Hx GERD
-Hx L inguinal hernia repair
-Hx R knee surgery
-Acute postop blood loss/Anemia (stable without transfusion)
-Acute postop thrombocytopenia (stable without active bleed)
-Acute postop atelectasis
-Acute postop hypovolemia with subsequent hypervolemia
-Acute postop SVT and A-fib with RVR
-Acute postop pulmonary insufficiency
-Acute postop hyponatremia
Subjective
Procedure
S/P Right mini thoracotomy with right common femoral artery and vein cannulation under [facility]ST guidance/Radical mitral valve repair (30 mm annuloplasty band, reapproximation of clefts at P1/P2 and P2/P3 and A1/A2 and A2/A3, CV 4 Wisner-Zoran cords placed to
P2 scallop and a single CV 4 Wisner-Zoran suture to A2 scallop)/Left atrial appendage exclusion with a 35 mm clip, by Dr. Lopez, 08/05/23, pod#4
-
Date of Service: August 09, 2023
Objective Data
-
08/09/23 05:50
PT 16.4 Sec (11.4-14.6) H 08/05/23 17:38
INR 1.34 08/05/23 17:38
APTT 29.2 Sec (23.4-35.0) 08/05/23 17:38
Vital Signs
Vital Signs
Temp Pulse Resp BP Pulse Ox
98.8 F 71 20 123/76 97
08/08/23 23:00 08/08/23 23:00 08/08/23 23:00 08/08/23 23:00 08/08/23 23:00
CT Intake/Output/Weight
08/08/23 08/08/23 08/09/23
06:59 18:59 06:59
Intake Total 1040 / 1950 970 / 970
Output Total 600 / 1685
Balance 440 / 265 970 / 970
SaO2: 97
--- NOTE | 2023-08-09 04:00 | PTCARENOTE ---
Patient reassessed. VSS. AM labs obtained. AM hygiene care provided. No complaints at this time. Remains SR with PVCs on the monitor.
[2023-08-09] MEDS: FLEXERIL 5 MG PO (05:55)
[2023-08-09] MEDS: TYLENOL 1000 MG PO (05:55)
[2023-08-09 05:57] LABS: Hemoglobin 10.6 g/dL (13.0-18.0); Mean Corp Hgb Conc. 35.3 g/dL (33.0-37.0); Mean Corpuscular Hgb 29.4 pg (27.0-31.0); Mean Corpuscular Volume 83.3 fL (80.0-94.0); Mean Platelet Volume 11.2 fL (7.4-10.4); Platelet Count 114 10^3/uL (130-400); Red Cell Dist. Width 13.1 % (11.5-14.5); White Blood Cell Count 12.1 10^3/uL (4.8-10.8)
[2023-08-09 06:29] LABS: Blood Urea Nitrogen 30 mg/dl (9-20); Calcium 7.7 mg/dl (8.4-10.2); Carbon Dioxide 29 mmol/L (22-30); Chloride 99 mmol/L (98-107); Estimated Creatinine Clearance 84 ml/min; Glucose 102 mg/dl (70-99); Magnesium 2.6 mg/dl (1.6-2.3); Sodium 131 mmol/L (135-145); eGFR > 60.00
[2023-08-09] MEDS: NOVOLOG FLEXPEN-LOW RESISTANCE SC (07:14)
--- NOTE | 2023-08-09 07:53 | W.PN.CD ---
Today's Communication / Plan
-
Furosemide 80 mg IV this morning.
Reduce furosemide this afternoon if response to furosemide is lackluster.
Ambulate.
Impression / Plan
-
Impression/Plan: 52 y/o male transferred from [facility] with new severe primary mitral regurgitation, initially concerning for infectious endocarditis, now s/p MV repair and left atrial appendage ligation.
#Mitral regurgitation, severe
-Mechanism appears to be flail leaflet, at P1/P2.
-No evidence of endocarditis. Cultures negative (previous antibiotics) but no sequelae off of antibiotics. Dental exam is negative.
-S/P radical mitral valve repair (#30 Mo Physioflex Band, SN [id number]) with reapproximation of clefts at all major scallop junctures, 4 Goretex neochords to P2 and a single neochord to A2 (08/05/2023) by Dr. Lopez.
-S/P prophylactic REESE ligation (#35 Atriclip).
-Pain control.
-Some diuresis with furosemide 60 IV yesterday, but weight is still up.
-Increase furosemide to 80 mg IV this morning. Redose if UOP is lackluster.
#HTN
-New diagnosis.
-Currently normotensive in the immediate post operative setting.
#PVC's:
-Improved with beta maria e.
-Echo with normal LVEF.
-Restart metoprolol when satisfied with surgical recovery.
#Non-obstructive CAD
-Chronic, stable.
-Continue ASA, statin.
#Current smoker:
-Recommended cessation.
-PFT's show normal spirometry.
Subjective/Interval History:
Furosemide 60 mg IV yesterday with some UOP but weight is up 0.6 kg.
SaO2 92% on RA.
Patient taken to CXR. No interview or exam performed.
DATA:
TTE, 08/08/2023:
CONCLUSIONS
Normal biventricular size and systolic function without regional wall motion
abnormality. Estimated LVEF 50-55%.
Mild concentric left ventricular hypertrophy.
s/p mitral valve repair. Peak/mean gradients across the mitral valve are 9/4
mmHg. No mitral regurgitation is seen.
Mildly dilated aortic root: 4.4 cm at SOV. Ectatic proximal ascending aorta:
3.7 cm.
Intraoperative CHRIST, 08/05/2023:
CONCLUSIONS
Overall LVEF is approximately 55% with no RWMA.
Mild concentric left ventricular hypertrophy.
Mildly dilated left atrium.
Trace tricuspid regurgitation.
Severe mitral regurgitation.
The P2 scallop is quite large and is flailing into the LA (whole scallop) with
associated torn chords.
Mid ascending aorta is mildly dilated measuring 3.5 cm at the level of the RPA.
Mild sessile atheroma seen in the descending aorta and distal arch.
POST OPERATIVE FINDINGS
The patient underwent a MV repair with an (Annuloplasty band and Dequan-chords)
and ligation of the LA appendage. Postop rhythm is now junctional. RV and LV
function are normal. Overall LVEF is still approximately 55% with no new RWMA.
No significant MR noted. Mild chordal RANDALL noted. Max MV gradient measures 4
mmHg, mean is 1 mmHg. Mild TR. Trace PI. AV appears normal. A very small
residual LA appendage lumen is noted. No flow is noted beyond the clip. Aortic
scan is unchanged.
Physical Exam
Vital Signs/Labs
Vital Signs
Temp Pulse Resp BP Pulse Ox
36.7 C 66 18 117/70 93
08/09/23 03:00 08/09/23 03:54 08/09/23 03:00 08/09/23 03:54 08/09/23 03:00
08/07/23 08/08/23 08/09/23
11:59 11:59 11:59
Actual Weight 97.9 kg 99.1 kg 99.7 kg
08/09/23 05:50
08/09/23 05:50
PT 16.4 Sec (11.4-14.6) H 08/05/23 17:38
INR 1.34 08/05/23 17:38
APTT 29.2 Sec (23.4-35.0) 08/05/23 17:38
Magnesium 2.6 mg/dl (1.6-2.3) H 08/09/23 05:50
Physical Exam
Exam deferred. Patient at CXR.
Data Reviewed
-
Date of Service: August 09, 2023
Medical Decision Making: Reviewed Test Results, Independent Historian Assessment, Test Interpretation and Review of Case with other Provider
EKG: Tracing Personally Visualized and interpreted and Report Reviewed by me
Echo: Tracing Personally Visualized and interpreted and Report Reviewed by me
X-Ray/CT/US/MRI/NUC/PET: Image Personally Visualized and interpreted and Report Reviewed by me
Medical Tests (PFT, Pathology etc): Report Reviewed by me
Labs: Labs Reviewed by me
Old Records: Reviewed
[2023-08-09] MEDS: LOPRESSOR 25 MG PO (08:12)
[2023-08-09] MEDS: NEURONTIN 200 MG PO (08:12)
[2023-08-09] MEDS: KCL 40 MEQ PO (08:12)
[2023-08-09] MEDS: LOW STRENGTH ASPIRIN 81 MG PO (08:12)
[2023-08-09] MEDS: PROTONIX 40 MG PO (08:12)
[2023-08-09] MEDS: LASIX 60 MG IV (08:12)
[2023-08-09] MEDS: MUCINEX 600 MG PO (08:12)
[2023-08-09] MEDS: PACERONE 200 MG PO (08:12)
[2023-08-09] MEDS: SENOKOT-S PO (08:13)
[2023-08-09] MEDS: MAGNESIUM OXIDE PO (08:13)
[2023-08-09] MEDS: BACTROBAN 2% OINTMENT 1 APPLIC NASAL (08:13)
[2023-08-09] MEDS: ROXICODONE 5 MG PO (08:16)
--- NOTE | 2023-08-09 08:26 | PTCARENOTE ---
Assumed care of patient from weight shifter RN, AAO x 3, c/o being really sore this am. Pain management addressed. SR on monitor. epicardial wire to back up of 30/5 VVI. No pacing noted. Room air 96% via ear probe. Remains STOLL, but recovers on
own. Abdomen benign. Voiding w/o issue. Plus 1 general anasarca. Pulses palpable. Plan for day discussed.
[2023-08-09] MEDS: LIDOCAINE 4% PATCH TOPICAL (09:20)
[2023-08-09] MEDS: LASIX 20 MG IV (10:07)
--- NOTE | 2023-08-09 10:16 | W.DCSUMMARY ---
Discharge Summary
Discharge Data
Date of Admission: 07/30/23
Date of Discharge: 08/09/23
-
Pending Results: No
Hospital Course
Primary care physician: Jemal Landeros
Outpatient hand sign writer: Bennett GALVAN
Inpatient consultants: BAN woods.
Chief Operator Hydroformer
Procedures:
1. Right minithoracotomy with right common femoral artery and vein cannulation
2. Radical mitral valve repair with 30 mm annuloplasty band, reapproximation of clefts at the P1/P2 and P2/P3 and A1/A2 and A2/A3, [place]-Zoran cords placed to P2 scallop and a single [place]-Zoran suture to A2 scallop
3. Left atrial appendage exclusion with 35 mm clip
Primary Diagnosis:
1. 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
Secondary Diagnoses:
1. Uncontrolled hypertension
2. History of smoking
3. GERD
4. Hyperlipidemia
5. Postoperative atrial fibrillation
6. Mitral regurgitation secondary to significant flail and prolapse of P2 scallop, type II mitral valve disease
HPI: Patient is a 52-year-old male who initially presented to [facility] with sores on his hands that were being worked up. He was found to have severe hypertension as well as multiple PVCs and a run of VT and underwent a cardiac workup
as well. As part of this workup he underwent a transthoracic echocardiogram which initially was thought to have a large mass on the posterior leaflet of the mitral valve. Further workup with a transesophageal echocardiogram revealed a very large
flail segment with severe mitral valve insufficiency. He did note mild symptoms over the last month where he felt somewhat tired and short of breath although not significant. He was transferred to [facility] for further evaluation. He
was found to have a flail segment and was offered the opportunity of discharge and readmission for elective surgery and he decided to move forward with mitral valve repair. Preoperative diagnostic studies were performed. Preoperative dental
clearance was obtained. He was scheduled for surgery.
Hospital course: Patient was brought to the operating room on the morning of 08/05/2023 where he underwent right minithoracotomy with right common femoral artery and vein cannulation under CHRSIT guidance.
Radical mitral valve repair with a 30 mm annuloplasty band. [place]-Zoran cord placed to P2 scallop and [place]-Zoran cord placed to A2 scallop.
Left atrial appendage exclusion with a 35 mm clip. He tolerated the procedure well and was returned to the surgical intensive care unit where he arrived in hemodynamically stable condition.
It should be noted patient did not receive any blood transfusions in the operating room and did not receive any blood transfusions during his entire hospitalization at [facility].
He arrived in the surgical intensive care unit on low-dose Dobutamine, Precedex and insulin. Patient had junctional rhythm intermittently postoperatively but was in sinus rhythm on arrival to surgical intensive care unit. His first night in the
intensive care unit was uneventful.
Postoperative day #1 he was weaned off dobutamine. Amiodarone and beta-maria e were held. Repeat cardiac index was 2.1 and [place] was removed. Patient went into sinus bradycardia and MVO2 measured at 55 so dobutamine was restarted. He was diuresed
with IV Lasix and diuresed nicely.
Postoperative day #2 had episode of rapid A-fib with RVR. Treated with amiodarone bolus x 2 and amiodarone drip. He was restarted on p.o. amnio and p.o. beta-maria e. He converted to sinus rhythm after approximately 6 hours. Chantix started
along with Mucinex. He was participating in cardiac rehabilitation and ambulating short distances. Chest tubes were removed. Pain controlled with lidocaine patch, Flexeril, gabapentin and oxycodone.
Postoperative day #3 TTE performed showed status post mitral valve repair with peak and mean gradients of 9/4 mmHg. No mitral regurgitation was seen. Ejection fraction was 50 to 55%. Patient was again diuresed with IV Lasix. Beta-maria e was
increased to 25 mg twice daily. His Cordis was removed.
Postoperative day #4 he continued to maintain sinus rhythm. His beta-maria e and p.o. amiodarone were continued. He was now ambulating increased distances in the [place] without difficulty. He again was diuresed with IV Lasix and had excellent urine
output. His weight was returning to baseline. 2 view chest x-ray showed small left pleural effusion and segmental atelectasis. He was able to be safely discharged the afternoon of 08/09/2023. At time of discharge he was maintaining sinus rhythm.
His blood pressure was 133/70. Pulse 78 regular and O2 sat was 95% on room air.
Discharge labs were as follows white blood cell count 12.1, hemoglobin 10.6 hematocrit 30 platelets 114. Sodium 131, potassium 4.0, BUN 30, creatinine 1.2
He was given a full set of discharge instructions along with appointments to follow-up with cardiology and Dr. Lopez.
He will have a BMP drawn in 1 week and results called to our office.
He was instructed to avoid driving for 2 weeks. He was instructed to check his daily weight and record.
Home medication changes: none
Patient was not on any medications at home.
Discharge Plan
-
Patient Disposition: Home (Routine Discharge)
Discharge Diagnosis/Procedures: MR/mitral valve repair
Condition: Good
Diet: Low Fat and Low Sodium
Activity: As tolerated and No strenuous activity
Driving Restrictions: No driving for 2 weeks
Bathing Restrictions: OK to Shower
Blood Work: BMP in 1 week
Other Services: Cardiac Rehab
Specialty Instructions: Weigh Daily- Call MD for wt gain/loss 3 lbs overnight/5 lbs in 1 week
Referrals:
CT Transitional Care Nurse [Outside] (The Cardiothoracic Transitional Care Nurse will call you to set up a visit in 1-2 days.)
Marcelo Guajardo MD [Active] - 09/16/23 2:00 pm
Davide Lopez MD [Active] - 09/05/23 3:00 pm
UNKNOWN - PT DOES,NOT KNOW [Family Provider] -
Additional Discharge Medication Instructions: none
Prescriptions:
New
cyclobenzaprine 10 mg Tablet
5 mg PO Q8HPRN PRN (Reason: muscle spasm) Qty: 25 0RF
atorvastatin 40 mg Tablet
40 mg PO QPM Qty: 30 3RF
lidocaine 4 % Adhesive Patch,Medicated
1 patch topical DAILY Qty: 5 0RF
aspirin [Children's Aspirin] 81 mg Tablet,Chewable
81 mg PO DAILY Qty: 90 1RF
metoprolol tartrate 25 mg Tablet
25 mg PO BID Qty: 60 3RF
acetaminophen 325 mg Tablet
650 mg PO Q4HPRN PRN (Reason: mild pain,headache,temp >101F ) Qty: 0 0RF
oxycodone 5 mg Tablet
5 mg PO Q4HPRN PRN (Reason: moderate pain) Qty: 25 0RF
amiodarone [Pacerone] 200 mg tablet
200 mg PO BID Qty: 60 1RF
famotidine 20 mg tablet
20 mg PO DAILY Qty: 30 0RF
furosemide [Lasix] 20 mg tablet
20 mg PO DAILY Qty: 7 3RF
Rx Instructions:
Take daily for 7 days, then stop
potassium chloride 20 mEq tablet extended release
20 meq PO DAILY Qty: 7 3RF
Discharge Orders:
Discharge Patient (As Directed); Ordered 08/09/23
Ordered By: Philippe Toro
Care Plan Goals
Care Plan Goals:
Problem: Readiness for enhanced knowledge related to diagnosis and treatment plan
Goal: Understand your diagnosis and treatment plan needs, including medications if applicable.
Instructions: Know your diagnosis, underlying causes and treatment plan options, including medications if applicable. Consult with your health care team to learn about your diagnosis and treatment plan, including medications if applicable.
Discharge Date and Time
Print Language: SRI LANKAN
--- NOTE | 2023-08-09 13:17 | PTCARENOTE ---
Discharge instructions given to patient and his . Went over medication list, prescriptions, last dose of medications, and appointments. RN answered patient's and 's questions. PIV discontinued per discharge policy. Patient escorted by staff
via wheelchair to [facility], where is parked and will pull up the car.
== END 2023-08-09 13:47 | disposition home or self-care (01) | DRG 219 ==
LOC: CVICU 19:35
PROVIDERS: Clinical Nurse Specialist Acute Care; Nurse Practitioner; Physician Assistant Medical; ADMITTING PHYSICIAN Thoracic Surgery (Cardiothoracic Vascular Surgery); ATTENDING PHYSICIAN Thoracic Surgery (Cardiothoracic Vascular Surgery); CONSULT PHYSICIAN Dentist Oral and Maxillofacial Surgery; OTHER PHYSICIAN Internal Medicine; OTHER PHYSICIAN Internal Medicine Critical Care Medicine; OTHER PHYSICIAN Internal Medicine Infectious Disease
PROC: 02L70CK Occlusion of Left Atrial Appendage with Extraluminal Device, Open Approach (ICD-10-PCS; 2023-08-05)
PROC: 02UG0JZ Supplement Mitral Valve with Synthetic Substitute, Open Approach (ICD-10-PCS; 2023-08-05)
PROC: B24BZZ4 Ultrasonography of Heart with Aorta, Transesophageal (ICD-10-PCS; 2023-08-05)
PROC: 5A09357 Assistance with Respiratory Ventilation, Less than 24 Consecutive Hours, Continuous Positive Airway Pressure (ICD-10-PCS; 2023-08-06)
DX: I34.0 Nonrheumatic mitral (valve) insufficiency (principal); I51.1 Rupture of chordae tendineae, not elsewhere classified; J95.1 Acute pulmonary insufficiency following thoracic surgery; D62 Acute posthemorrhagic anemia; J98.11 Atelectasis; L03.113 Cellulitis of right upper limb; L03.114 Cellulitis of left upper limb; E87.1 Hypo-osmolality and hyponatremia; I34.1 Nonrheumatic mitral (valve) prolapse; F17.210 Nicotine dependence, cigarettes, uncomplicated; R09.02 Hypoxemia; I48.91 Unspecified atrial fibrillation; R00.1 Bradycardia, unspecified; D69.59 Other secondary thrombocytopenia; E86.1 Hypovolemia; Y83.1 Surgical operation with implant of artificial internal device as the cause of abnormal reaction of the patient, or of later complication, without mention of misadventure at the time of the procedure; K21.9 Gastro-esophageal reflux disease without esophagitis; I25.10 Atherosclerotic heart disease of native coronary artery without angina pectoris; E78.5 Hyperlipidemia, unspecified; I10 Essential (primary) hypertension; I45.5 Other specified heart block; I77.810 Thoracic aortic ectasia
CPT/HCPCS: 70355; 71045; 71046; 71275; 74174; 80048; 80053; 81003; 82330; 82565; 82805; 82810; 82947; 82962; 83036; 83735; 84132; 84302; 84520; 85014; 85018; 85025; 85027; 85049; 85610; 85652; 85730; 86140; 86850; 86900; 86901; 86920; 87040; 87070; 93005; 93306; 93312; 93320; 93325; 93880; 94002; 94010; 94660; 99406; P9045; Q9967

== ENCOUNTER 2023-10-02 16:04 | Outpatient (RCR) | payer OTHER, SELFPAY | END 2023-10-02 23:59 | disposition home or self-care (01) | LOC: CRHB 16:04 | PROVIDERS: ATTENDING PHYSICIAN Internal Medicine Interventional Cardiology; FAMILY PHYSICIAN Family Medicine | DX: Z95.4 Presence of other heart-valve replacement (principal) | CPT/HCPCS: G0422 ==

== ENCOUNTER 2023-10-30 15:02 | Outpatient (RCR) | payer OTHER, SELFPAY | END 2023-10-30 23:59 | disposition home or self-care (01) | LOC: CRHB 15:02 | PROVIDERS: ATTENDING PHYSICIAN Internal Medicine Interventional Cardiology; FAMILY PHYSICIAN Family Medicine | DX: Z95.4 Presence of other heart-valve replacement (principal) | CPT/HCPCS: G0422; G0423 ==

== ENCOUNTER → 2023-11-19 15:27 | Outpatient (REF) | payer OTHER, SELFPAY | LOC: RAD 15:27 | PROVIDERS: ATTENDING PHYSICIAN Radiology Diagnostic Radiology; FAMILY PHYSICIAN Family Medicine | DX: Z13.5 Encounter for screening for eye and ear disorders (principal) | CPT/HCPCS: 70030 ==

== ENCOUNTER → 2023-11-25 08:27 | Outpatient (REF) | payer OTHER, SELFPAY | LOC: MRI 08:27 | PROVIDERS: ATTENDING PHYSICIAN Internal Medicine Interventional Cardiology; FAMILY PHYSICIAN Family Medicine; REFERRING PHYSICIAN Internal Medicine Cardiovascular Disease | DX: I47.29 Other ventricular tachycardia (principal); I49.3 Ventricular premature depolarization; Z98.890 Other specified postprocedural states; I25.10 Atherosclerotic heart disease of native coronary artery without angina pectoris | CPT/HCPCS: 75561; A9585 ==

== ENCOUNTER 2023-12-04 17:00 | Outpatient (RCR) | payer OTHER, SELFPAY | END 2023-12-04 23:59 | disposition home or self-care (01) | LOC: CRHB 17:00 | PROVIDERS: ATTENDING PHYSICIAN Internal Medicine Interventional Cardiology; FAMILY PHYSICIAN Family Medicine | DX: Z95.4 Presence of other heart-valve replacement (principal) | CPT/HCPCS: G0422; G0423 ==

== ENCOUNTER 2024-01-01 16:31 | Outpatient (RCR) | payer OTHER, SELFPAY | END 2024-01-01 23:59 | disposition home or self-care (01) | LOC: CRHB 16:31 | PROVIDERS: ATTENDING PHYSICIAN Internal Medicine Interventional Cardiology; FAMILY PHYSICIAN Family Medicine | DX: Z95.4 Presence of other heart-valve replacement (principal) | CPT/HCPCS: G0422 ==

== ENCOUNTER 2024-01-15 17:06 | Outpatient (RCR) | payer OTHER, SELFPAY | END 2024-01-16 12:05 | disposition home or self-care (01) | LOC: CRHB 17:06 | PROVIDERS: ATTENDING PHYSICIAN Internal Medicine Interventional Cardiology; FAMILY PHYSICIAN Family Medicine | DX: Z95.4 Presence of other heart-valve replacement (principal) | CPT/HCPCS: G0422 ==